=== PATIENT | male | born 1935 | race Asian ===

== ENCOUNTER 2018-11-19 14:53 | Inpatient (IN) | payer OTHER, MEDICAID ==
[~2018-11-19] VITALS: Ht 162.6 cm; Wt 52.2 kg
--- NOTE | 2018-11-19 15:06 | Emergency Room Report ---
History of Present Illness General Chief Complaint: Chest Pain Source: Patient, Family Member, EMS Present Illness HPI Patient was brought in by EMS after family called for weakness. The patient denies any chest pain. Paramedics noted that the patient was bradycardic. There is a language barrier however nurses will translate. No fevers, chills, chest pain, palpitations, nausea, vomiting, diarrhea, dysuria , abdominal pain, shortness of breath, depression, visual changes, headache. Allergies: Coded Allergies: No Known Allergies (Unverified , 11/19/18) Patient History Past Medical History: see triage record Social History: Denies: smoking Social History Narrative From home Reviewed Nursing Documentation: PMH: Agreed; PSxH: Agreed Nursing Documentation-PMH Past Medical History: No History, Except For Hx Hypertension: Yes Hx Diabetes: Yes Review of Systems All Other Systems: negative except mentioned in HPI Physical Exam Vital Signs Date Time Temp Pulse Resp B/P (MAP) Pulse Ox O2 Delivery O2 Flow Rate FiO2 11/19/18 14:46 50 16 140/55 (83) 98 Room Air Sp02 EP Interpretation: reviewed, normal General Appearance: well appearing, no apparent distress, alert, non-toxic Head: normocephalic, atraumatic Eyes: bilateral eye normal inspection, bilateral eye PERRL ENT: moist mucus membranes, other - Hearing aids Neck: supple Respiratory: lungs clear, normal breath sounds Cardiovascular #1: regular rate, rhythm Cardiovascular #2: 2+ radial (R) Gastrointestinal: normal inspection, normal bowel sounds, non tender, no mass, non-distended Musculoskeletal: back normal, normal range of motion Neurologic: alert, DTRs symmetric, sensory intact, motor weakness - Diffuse, oriented - X2 Psychiatric: depressed affect Skin: normal inspection, warm/dry Medical Decision Making Diagnostic Impression: Primary Impression: Chest pain Qualified Codes: R07.9 - Chest pain, unspecified Additional Impressions: Weakness ARF (acute renal failure) Qualified Codes: N17.9 - Acute kidney failure, unspecified Bradycardia ER Course Patient presents with weakness and bradycardia. I differential includes acute myocardial infarction, medication excess, electrolyte imbalance amongst others. Patient will be evaluated with EKG, chest x-ray and labs. The patient will receive gentle IV hydration. The patient is afebrile therefore lactate and blood cultures are not indicated. EKG with sinus bradycardia with first-degree A-V block rate of 52 no acute changes. ARF. Chest x-ray no infiltrates. HR slightly better. Patient still weak. Admit telemetry Dr. May. Laboratory Tests Test 11/19/18 15:10 11/19/18 15:40 White Blood Count 8.9 K/UL (4.8-10.8) Red Blood Count 3.20 M/UL (4.70-6.10) L Hemoglobin 10.5 G/DL (14.2-18.0) L Hematocrit 29.1 % (42.0-52.0) L Mean Corpuscular Volume 91 FL (80-99) Mean Corpuscular Hemoglobin 32.8 PG (27.0-31.0) H Mean Corpuscular Hemoglobin Concent 36.0 G/DL (32.0-36.0) Red Cell Distribution Width 11.2 % (11.6-14.8) L Platelet Count 171 K/UL (150-450) Mean Platelet Volume 5.4 FL (6.5-10.1) L Neutrophils (%) (Auto) 73.3 % (45.0-75.0) Lymphocytes (%) (Auto) 14.6 % (20.0-45.0) L Monocytes (%) (Auto) 8.6 % (1.0-10.0) Eosinophils (%) (Auto) 1.8 % (0.0-3.0) Basophils (%) (Auto) 1.7 % (0.0-2.0) Prothrombin Time 10.0 SEC (9.30-11.50) Prothrombin Time INR 0.9 (0.9-1.1) PTT 22 SEC (23-33) L Sodium Level 139 MMOL/L (136-145) Potassium Level 4.5 MMOL/L (3.5-5.1) Chloride Level 103 MMOL/L (98-107) Carbon Dioxide Level 28 MMOL/L (21-32) Anion Gap 8 mmol/L (5-15) Blood Urea Nitrogen 34 mg/dL (7-18) H Creatinine 2.5 MG/DL (0.55-1.30) H Estimate Glomerular Filtration Rate mL/min (>60) Glucose Level 240 MG/DL (74-106) H Calcium Level 9.3 MG/DL (8.5-10.1) Total Bilirubin 0.3 MG/DL (0.2-1.0) Aspartate Amino Transferase (AST) 25 U/L (15-37) Alanine Aminotransferase (ALT) 24 U/L (12-78) Alkaline Phosphatase 69 U/L (46-116) Total Creatine Kinase 63 U/L (26-308) Troponin I 0.000 ng/mL (0.000-0.056) Pro-B-Type Natriuretic Peptide 1064 pg/mL (0-125) H Total Protein 6.9 G/DL (6.4-8.2) Albumin 3.7 G/DL (3.4-5.0) Globulin 3.2 g/dL Albumin/Globulin Ratio 1.2 (1.0-2.7) Lipase 313 U/L (73-393) Urine Color Yellow Urine Appearance Clear Urine pH 6 (4.5-8.0) Urine Specific [place] 1.020 (1.005-1.035) Urine Protein 4+ (NEGATIVE) H Urine Glucose (UA) Negative (NEGATIVE) Urine Ketones Negative (NEGATIVE) Urine Blood Negative (NEGATIVE) Urine Nitrite Negative (NEGATIVE) Urine Bilirubin Negative (NEGATIVE) Urine Urobilinogen Normal MG/DL (0.0-1.0) Urine Leukocyte Esterase Negative (NEGATIVE) Urine RBC 0-2 /HPF (0 - 0) H Urine WBC 0-2 /HPF (0 - 0) Urine Squamous Epithelial Cells None /LPF (NONE/OCC) Urine Bacteria Few /HPF (NONE) EKG Diagnostic Results Rate: bradycardiac Rhythm: NSR ST Segments: no acute changes - First degree AV block Rhythm Strip Diag. Results EP Interpretation: yes Rhythm: NSR, no PVC's, no ectopy, other - Bradycardia Chest X-Ray Diagnostic Results Chest X-Ray Diagnostic Results : Chest X-Ray Ordered: Yes # of Views/Limited/Complete: 1 View Indication: Chest Pain EP Interpretation: Yes Interpretation: no consolidation, no effusion, no pneumothorax Impression: No acute disease Electronically Signed by: Electronically signed by Foreign Guajardo MD Last Vital Signs Date Time Temp Pulse Resp B/P (MAP) Pulse Ox O2 Delivery O2 Flow Rate FiO2 11/20/18 00:00 98.1 65 18 127/57 (80) 98 11/19/18 21:00 Room Air Status: improved Disposition: ADMITTED INPATIENT Condition: Serious Foreign Guajardo MD Nov 19, 2018 15:06
[2018-11-19] MEDS ORDERED: Sodium Chloride 550 ML IV SCH (15:15)
[2018-11-19 15:19] VITALS: BP 151/43
--- NOTE | 2018-11-19 15:22 | NUR ---
ED Nurse Note: Pt BIBA from home due to chest pain medial area 1 hr prior to arrival, pt took 0.4mg Nitroglycerin and was given 162mg of ASA by paramedics. No pain upon arrival. HR in the range 45-55 at this time. AOx4, Will cont to monitor.
[2018-11-19 15:28] LABS: BASOPHILS % (AUTO) 1.7 % (0.0-2.0); EOSINOPHILS % (AUTO) 1.8 % (0.0-3.0); HEMATOCRIT 29.1 % (42.0-52.0); HEMOGLOBIN 10.5 G/DL (14.2-18.0); LYMPHOCYTES % (AUTO) 14.6 % (20.0-45.0); MEAN CORPUSCULAR VOLUME 91 FL (80-99); MONOCYTES % (AUTO) 8.6 % (1.0-10.0); NEUTROPHILS % (AUTO) 73.3 % (45.0-75.0); PLATELET COUNT 171 K/UL (150-450); RED CELL DISTRIBUTION WIDTH 11.2 % (11.6-14.8); WHITE BLOOD COUNT 8.9 K/UL (4.8-10.8)
--- NOTE | 2018-11-19 15:36 | NUR ---
ED Nurse Note: Blood drawn and sent to lab.
[2018-11-19 15:38] LABS: ANION GAP 8 mmol/L (5-15); BLOOD UREA NITROGEN 34 mg/dL (7-18); CALCIUM 9.3 MG/DL (8.5-10.1); CARBON DIOXIDE 28 MMOL/L (21-32); CHLORIDE 103 MMOL/L (98-107); CREATININE 2.5 MG/DL (0.55-1.30); POTASSIUM 4.5 MMOL/L (3.5-5.1); SODIUM 139 MMOL/L (136-145)
[2018-11-19 15:41] LABS: INR 0.9 (0.9-1.1)
[2018-11-19 15:53] LABS: ALANINE AMINOTRANSFERASE 24 U/L (12-78); ALBUMIN 3.7 G/DL (3.4-5.0); ALBUMIN/GLOBULIN RATIO 1.2 (1.0-2.7); ALKALINE PHOSPHATASE 69 U/L (46-116); ASPARTATE AMINO TRANSFERASE 25 U/L (15-37); BILIRUBIN,TOTAL 0.3 MG/DL (0.2-1.0); CREATINE KINASE 63 U/L (26-308)
[2018-11-19 15:55] LABS: APPEARANCE,URINE CLEAR; BILIRUBIN, URINE NEGATIVE (NEGATIVE); GLUCOSE, URINE (UA) NEGATIVE (NEGATIVE); KETONES,URINE NEGATIVE (NEGATIVE); LEUKOCYTE ESTERASE ,URINE NEGATIVE (NEGATIVE); NITRITE,URINE NEGATIVE (NEGATIVE); PH,URINE 6 (4.5-8.0); PROTEIN,URINE 4+ (NEGATIVE); UROBILINOGEN,URINE NORMAL MG/DL (0.0-1.0)
[2018-11-19 15:57] LABS: COLOR,URINE YELLOW
--- NOTE | 2018-11-19 15:58 | Diagnostic Imaging Report ---
Indication: Dyspnea Comparison: None A single view chest radiograph was obtained. Findings: Cardiomediastinal appearance is within normal limits for age. The lungs are clear. Pulmonary vascularity is appropriate. The diaphragmatic contour is smooth and costophrenic angles are sharp. No pleural effusions are identified. The bones are unremarkable. Impression: No acute findings
[2018-11-19 17:19] VITALS: BP 152/49
--- NOTE | 2018-11-19 17:25 | NUR ---
ED Nurse Note: "Im going to find a nurse for the room and call you back" from [facility].
[2018-11-19] MEDS ORDERED: dilTIAZem HCl 25mg/5ml Inj IV PRN (17:45)
[2018-11-19] MEDS ORDERED: Morphine Sulfate 2mg/ml Inj(IV/IM USE ONLY) IVP PRN (17:45)
[2018-11-19] MEDS ORDERED: Miralax 17gm pkt ORAL PRN (17:49)
[2018-11-19] MEDS ORDERED: Nitroglycerin Subl 0.4mg tab SL PRN (17:49)
[2018-11-19] MEDS ORDERED: Albuterol/Ipratropium 3ml neb HHN PRN (17:50)
[2018-11-19] MEDS ORDERED: Enalaprilat 2.5mg/2ml Inj IV PRN (17:50)
[2018-11-19 18:01] VITALS: BP 148/57
--- NOTE | 2018-11-19 18:18 | NUR ---
ED Nurse Note: Report given to LASHANDA Burks at ext [phone]. Pt to be transfered to room 205-2 per protocol with all belongings.
[2018-11-19 18:45] VITALS: BP 167/70
--- NOTE | 2018-11-19 19:15 | NUR ---
NURSE NOTES: Received pt. and report from LASHANDA Burks. Observe pt resting in bed and watching television. supervisor filtration is in placed, IV site intact, asymptomatic and patent. Bed is in the lowest position and locked. Call light within reach. No signs and symptoms of acute distress noted at this time. Will continue plan of care.
--- NOTE | 2018-11-19 19:25 | NUR ---
HAND-OFF: Report given to FUNMI PYLE.
[2018-11-19 20:00] VITALS: BP 124/96
--- NOTE | 2018-11-19 20:08 | Cardiology Progress Note ---
Assessment/Plan Assessment/Plan sinus solis excellent bp meds unknown need more infor form family and pt chk tfts and ekg and echo in am trop in am [id number] will follow thank you Objective Last 24 Hour Vital Signs Date Time Temp Pulse Resp B/P (MAP) Pulse Ox O2 Delivery O2 Flow Rate FiO2 11/19/18 18:45 98.0 67 18 167/70 (102) 96 11/19/18 18:38 Room Air 11/19/18 18:18 57 20 148/57 98 Room Air 11/19/18 18:01 57 20 148/57 98 Room Air 11/19/18 17:19 53 18 152/49 98 Room Air 11/19/18 15:20 54 20 Room Air 11/19/18 15:19 54 20 151/43 99 Room Air 11/19/18 14:46 50 16 140/55 (83) 98 Room Air Laboratory Tests Test 11/19/18 15:10 11/19/18 15:40 White Blood Count 8.9 K/UL (4.8-10.8) Red Blood Count 3.20 M/UL (4.70-6.10) L Hemoglobin 10.5 G/DL (14.2-18.0) L Hematocrit 29.1 % (42.0-52.0) L Mean Corpuscular Volume 91 FL (80-99) Mean Corpuscular Hemoglobin 32.8 PG (27.0-31.0) H Mean Corpuscular Hemoglobin Concent 36.0 G/DL (32.0-36.0) Red Cell Distribution Width 11.2 % (11.6-14.8) L Platelet Count 171 K/UL (150-450) Mean Platelet Volume 5.4 FL (6.5-10.1) L Neutrophils (%) (Auto) 73.3 % (45.0-75.0) Lymphocytes (%) (Auto) 14.6 % (20.0-45.0) L Monocytes (%) (Auto) 8.6 % (1.0-10.0) Eosinophils (%) (Auto) 1.8 % (0.0-3.0) Basophils (%) (Auto) 1.7 % (0.0-2.0) Prothrombin Time 10.0 SEC (9.30-11.50) Prothromb Time International Ratio 0.9 (0.9-1.1) Activated Partial Thromboplast Time 22 SEC (23-33) L Sodium Level 139 MMOL/L (136-145) Potassium Level 4.5 MMOL/L (3.5-5.1) Chloride Level 103 MMOL/L (98-107) Carbon Dioxide Level 28 MMOL/L (21-32) Anion Gap 8 mmol/L (5-15) Blood Urea Nitrogen 34 mg/dL (7-18) H Creatinine 2.5 MG/DL (0.55-1.30) H Estimat Glomerular Filtration Rate mL/min (>60) Glucose Level 240 MG/DL (74-106) H Calcium Level 9.3 MG/DL (8.5-10.1) Total Bilirubin 0.3 MG/DL (0.2-1.0) Aspartate Amino Transf (AST/SGOT) 25 U/L (15-37) Alanine Aminotransferase (ALT/SGPT) 24 U/L (12-78) Alkaline Phosphatase 69 U/L (46-116) Total Creatine Kinase 63 U/L (26-308) Troponin I 0.000 ng/mL (0.000-0.056) Pro-B-Type Natriuretic Peptide 1064 pg/mL (0-125) H Total Protein 6.9 G/DL (6.4-8.2) Albumin 3.7 G/DL (3.4-5.0) Globulin 3.2 g/dL Albumin/Globulin Ratio 1.2 (1.0-2.7) Lipase 313 U/L (73-393) Urine Color Yellow Urine Appearance Clear Urine pH 6 (4.5-8.0) Urine Specific [place] 1.020 (1.005-1.035) Urine Protein 4+ (NEGATIVE) H Urine Glucose (UA) Negative (NEGATIVE) Urine Ketones Negative (NEGATIVE) Urine Blood Negative (NEGATIVE) Urine Nitrite Negative (NEGATIVE) Urine Bilirubin Negative (NEGATIVE) Urine Urobilinogen Normal MG/DL (0.0-1.0) Urine Leukocyte Esterase Negative (NEGATIVE) Urine RBC 0-2 /HPF (0 - 0) H Urine WBC 0-2 /HPF (0 - 0) Urine Squamous Epithelial Cells None /LPF (NONE/OCC) Urine Bacteria Few /HPF (NONE) David Jain MD Nov 19, 2018 20:08
[2018-11-19 21:11] LABS: CREATINE KINASE 63 U/L (26-308)
[2018-11-19] MEDS: Heparin 5000 units/ml inj SUBQ SCH (21:30)
[2018-11-19] MEDS: NovoLOG Insulin Flexpen SUBQ SCH (21:48)
[2018-11-20] VITALS: BP 127/57
[2018-11-20 04:00] VITALS: BP 158/56
[2018-11-20 06:20] LABS: BASOPHILS % (AUTO) 0.5 % (0.0-2.0); EOSINOPHILS % (AUTO) 1.4 % (0.0-3.0); HEMATOCRIT 29.2 % (42.0-52.0); HEMOGLOBIN 10.1 G/DL (14.2-18.0); LYMPHOCYTES % (AUTO) 23.7 % (20.0-45.0); MEAN CORPUSCULAR VOLUME 95 FL (80-99); MONOCYTES % (AUTO) 7.7 % (1.0-10.0); NEUTROPHILS % (AUTO) 66.7 % (45.0-75.0); PLATELET COUNT 168 K/UL (150-450); RED BLOOD COUNT 3.07 M/UL (4.70-6.10); RED CELL DISTRIBUTION WIDTH 11.8 % (11.6-14.8); WHITE BLOOD COUNT 5.7 K/UL (4.8-10.8)
[2018-11-20] MEDS: NovoLOG Insulin Flexpen SUBQ SCH ×4 (06:30→21:28)
[2018-11-20 07:02] LABS: ALANINE AMINOTRANSFERASE 21 U/L (12-78); ALBUMIN 3.4 G/DL (3.4-5.0); ALKALINE PHOSPHATASE 69 U/L (46-116); ANION GAP 8 mmol/L (5-15); ASPARTATE AMINO TRANSFERASE 27 U/L (15-37); BILIRUBIN,TOTAL 0.4 MG/DL (0.2-1.0); BLOOD UREA NITROGEN 27 mg/dL (7-18); CARBON DIOXIDE 26 MMOL/L (21-32); CHLORIDE 107 MMOL/L (98-107); CHOLESTEROL 131 MG/DL (< 200); CREATININE 2.1 MG/DL (0.55-1.30); FERRITIN 167 NG/ML (8-388); HDL CHOLESTEROL 46 MG/DL (40-60); POTASSIUM 4.5 MMOL/L (3.5-5.1); SODIUM 141 MMOL/L (136-145); TRIGLYCERIDES 57 MG/DL (30-150)
[2018-11-20 07:03] LABS: % IRON SATURATION 27 % (15-50); IRON 59 ug/dL (50-175); TOTAL IRON BINDING CAPACITY 222 ug/dL (250-450)
--- NOTE | 2018-11-20 07:35 | NUR ---
NURSE NOTES: pt awake alert, no distress. no sob. no c/o pain at this time. call light within reach. bed in lowest position, locked.
[2018-11-20 07:37] VITALS: BP 130/56
[2018-11-20 07:48] LABS: GAMMA GLUTAMYL TRANSPEPTIDASE 37 U/L (5-85); PHOSPHORUS 4.7 MG/DL (2.5-4.9)
--- NOTE | 2018-11-20 08:02 | NUR ---
HAND-OFF: Report given to LASHANDA Burks.
[2018-11-20] MEDS: Aspirin Baby 81mg ORAL SCH (08:17)
[2018-11-20] MEDS: Heparin 5000 units/ml inj SUBQ SCH ×2 (08:19→21:29)
--- NOTE | 2018-11-20 10:06 | Cardiology Progress Note ---
Assessment/Plan Assessment/Plan sinus solis recurrent bout of nausea and vomitting htn hld renal insuf anemia list of med are being requested from pharmacy rn who is familiar with the pharmacy was going to call them d/w dtr d/w rn ahd similar episode fo nausea and vomitting on several occasion seen by pmd nothing seem to have been done monitor on tele ekg echo tsh need tomake suere meds are nto contributing to the solis and or nausea and vomiting Subjective Cardiovascular: Denies: chest pain, lightheadedness, palpitations Respiratory: Denies: shortness of breath Gastrointestinal/Abdominal: Denies: abdominal pain, diarrhea, nausea, vomiting Genitourinary: Denies: burning Objective Last 24 Hour Vital Signs Date Time Temp Pulse Resp B/P (MAP) Pulse Ox O2 Delivery O2 Flow Rate FiO2 11/20/18 07:53 63 11/20/18 07:37 98.4 68 18 130/56 (80) 96 11/20/18 04:00 54 11/20/18 04:00 98.4 66 18 158/56 (90) 96 11/20/18 00:00 98.1 65 18 127/57 (80) 98 11/20/18 00:00 52 11/19/18 21:00 Room Air 11/19/18 20:00 79 11/19/18 20:00 98.2 69 18 124/96 (105) 97 11/19/18 18:45 98.0 67 18 167/70 (102) 96 11/19/18 18:38 Room Air 11/19/18 18:18 57 20 148/57 98 Room Air 11/19/18 18:01 57 20 148/57 98 Room Air 11/19/18 17:19 53 18 152/49 98 Room Air 11/19/18 15:20 54 20 Room Air 11/19/18 15:19 54 20 151/43 99 Room Air 11/19/18 14:46 50 16 140/55 (83) 98 Room Air General Appearance: no apparent distress, alert Neck: supple Cardiovascular: normal rate, regular rhythm Respiratory/Chest: lungs clear Abdomen: normal bowel sounds, non tender, soft Extremities: no swelling Intake and Output 11/19/18 11/20/18 19:00 07:00 Intake Total 550 ml Balance 550 ml IV Total 550 ml # Voids 1 Laboratory Tests Test 11/19/18 15:10 11/19/18 15:40 11/19/18 20:20 11/20/18 04:45 White Blood Count 8.9 K/UL (4.8-10.8) 5.7 K/UL (4.8-10.8) Red Blood Count 3.20 M/UL (4.70-6.10) L 3.07 M/UL (4.70-6.10) L Hemoglobin 10.5 G/DL (14.2-18.0) L 10.1 G/DL (14.2-18.0) L Hematocrit 29.1 % (42.0-52.0) L 29.2 % (42.0-52.0) L Mean Corpuscular Volume 91 FL (80-99) 95 FL (80-99) Mean Corpuscular Hemoglobin 32.8 PG (27.0-31.0) H 32.8 PG (27.0-31.0) H Mean Corpuscular Hemoglobin Concent 36.0 G/DL (32.0-36.0) 34.5 G/DL (32.0-36.0) Red Cell Distribution Width 11.2 % (11.6-14.8) L 11.8 % (11.6-14.8) Platelet Count 171 K/UL (150-450) 168 K/UL (150-450) Mean Platelet Volume 5.4 FL (6.5-10.1) L 6.1 FL (6.5-10.1) L Neutrophils (%) (Auto) 73.3 % (45.0-75.0) 66.7 % (45.0-75.0) Lymphocytes (%) (Auto) 14.6 % (20.0-45.0) L 23.7 % (20.0-45.0) Monocytes (%) (Auto) 8.6 % (1.0-10.0) 7.7 % (1.0-10.0) Eosinophils (%) (Auto) 1.8 % (0.0-3.0) 1.4 % (0.0-3.0) Basophils (%) (Auto) 1.7 % (0.0-2.0) 0.5 % (0.0-2.0) Prothrombin Time 10.0 SEC (9.30-11.50) 10.2 SEC (9.30-11.50) Prothromb Time International Ratio 0.9 (0.9-1.1) 1.0 (0.9-1.1) Activated Partial Thromboplast Time 22 SEC (23-33) L 28 SEC (23-33) Sodium Level 139 MMOL/L (136-145) 141 MMOL/L (136-145) Potassium Level 4.5 MMOL/L (3.5-5.1) 4.5 MMOL/L (3.5-5.1) Chloride Level 103 MMOL/L (98-107) 107 MMOL/L (98-107) Carbon Dioxide Level 28 MMOL/L (21-32) 26 MMOL/L (21-32) Anion Gap 8 mmol/L (5-15) 8 mmol/L (5-15) Blood Urea Nitrogen 34 mg/dL (7-18) H 27 mg/dL (7-18) H Creatinine 2.5 MG/DL (0.55-1.30) H 2.1 MG/DL (0.55-1.30) H Estimat Glomerular Filtration Rate mL/min (>60) mL/min (>60) Glucose Level 240 MG/DL (74-106) H 90 MG/DL (74-106) # Calcium Level 9.3 MG/DL (8.5-10.1) 9.0 MG/DL (8.5-10.1) Total Bilirubin 0.3 MG/DL (0.2-1.0) 0.4 MG/DL (0.2-1.0) Aspartate Amino Transf (AST/SGOT) 25 U/L (15-37) 27 U/L (15-37) Alanine Aminotransferase (ALT/SGPT) 24 U/L (12-78) 21 U/L (12-78) Alkaline Phosphatase 69 U/L (46-116) 69 U/L (46-116) Total Creatine Kinase 63 U/L (26-308) 63 U/L (26-308) Troponin I 0.000 ng/mL (0.000-0.056) 0.013 ng/mL (0.000-0.056) Pro-B-Type Natriuretic Peptide 1064 pg/mL (0-125) H 682 pg/mL (0-125) H Total Protein 6.9 G/DL (6.4-8.2) 6.7 G/DL (6.4-8.2) Albumin 3.7 G/DL (3.4-5.0) 3.4 G/DL (3.4-5.0) Globulin 3.2 g/dL 3.3 g/dL Albumin/Globulin Ratio 1.2 (1.0-2.7) 1.0 (1.0-2.7) Lipase 313 U/L (73-393) Urine Color Yellow Urine Appearance Clear Urine pH 6 (4.5-8.0) Urine Specific [place] 1.020 (1.005-1.035) Urine Protein 4+ (NEGATIVE) H Urine Glucose (UA) Negative (NEGATIVE) Urine Ketones Negative (NEGATIVE) Urine Blood Negative (NEGATIVE) Urine Nitrite Negative (NEGATIVE) Urine Bilirubin Negative (NEGATIVE) Urine Urobilinogen Normal MG/DL (0.0-1.0) Urine Leukocyte Esterase Negative (NEGATIVE) Urine RBC 0-2 /HPF (0 - 0) H Urine WBC 0-2 /HPF (0 - 0) Urine Squamous Epithelial Cells None /LPF (NONE/OCC) Urine Bacteria Few /HPF (NONE) Urine Eosinophils Negative (NONE SEEN) Urine Osmolality 475 mOsm/kg (429-449) H Urine Random Creatinine Pending Urine Random Microalbumin Pending Urine Random Sodium 67 mmol/L (20-110) Urine Microalbumin/Creatinine Ratio Pending Uric Acid 6.1 MG/DL (2.6-7.2) 6.3 MG/DL (2.6-7.2) Hemoglobin A1c 6.1 % (4.3-6.0) H Phosphorus Level 4.7 MG/DL (2.5-4.9) Magnesium Level 1.9 MG/DL (1.8-2.4) Iron Level 59 ug/dL (50-175) Total Iron Binding Capacity 222 ug/dL (250-450) L Percent Iron Saturation 27 % (15-50) Unsaturated Iron Binding 163 ug/dL (112-346) Ferritin 167 NG/ML (8-388) Gamma Glutamyl Transpeptidase 37 U/L (5-85) C-Reactive Protein, Quantitative < 0.4 mg/dL (0.00-0.90) Triglycerides Level 57 MG/DL (30-150) Cholesterol Level 131 MG/DL (< 200) LDL Cholesterol 74 mg/dL (<100) HDL Cholesterol 46 MG/DL (40-60) Cholesterol/HDL Ratio 2.8 (3.3-4.4) L Vitamin B12 Level 771 PG/ML (193-986) Folate 81.9 NG/ML (8.6-58.9) H Thyroid Stimulating Hormone (TSH) 1.829 uiU/mL (0.358-3.740) David Jain MD Nov 20, 2018 10:06
[2018-11-20] MEDS ORDERED: CREON DR 24,001 EACH PO (10:29)
[2018-11-20] MEDS ORDERED: ZOFRAN4 M3 ORAL (10:29)
[2018-11-20] MEDS ORDERED: AMLODIPINE BESYL5 MG ORAL (10:29)
[2018-11-20] MEDS ORDERED: TRADJENTA5 MG PO (10:29)
[2018-11-20] MEDS ORDERED: ANTI-DIARRHEAL2 MG PO (10:29)
[2018-11-20] MEDS ORDERED: DONEPEZIL HCL5 M2 ORAL (10:29)
[2018-11-20] MEDS ORDERED: BENAZEPRIL HCL40 MG ORAL (10:29)
--- NOTE | 2018-11-20 11:51 | Diagnostic Imaging Report ---
Indication: Acute renal failure Technique: Grayscale and duplex images of the kidneys, retroperitoneum, and bladder were obtained. Comparison: none Findings: Right kidney measures 8.4 cm in length. Left kidney measures 11.5 cm in length. Both kidneys demonstrate increased echogenicity. No hydronephrosis. There is mild fullness of the left renal collecting system. There is bilateral renal cysts noted.. Normal inferior vena cava. Bladder is somewhat distended. Patient had no urge to void the prostate is not demonstrated. Impression: Somewhat atrophic right kidney Increased renal echogenicity bilaterally, consistent with medical renal disease Mild fullness of the left renal collecting system, of uncertain significance incidental finding bilateral renal cysts.
[2018-11-20 12:00] VITALS: BP 128/60
--- NOTE | 2018-11-20 12:48 | Consultation ---
History of Present Illness General Date patient seen: Nov 20, 2018 Chief Complaint: Chest Pain Present Illness HPI 83 year old male with hx of Dementia, HtN, brought in by EMS after family called for weakness. The patient denies any chest pain. Paramedics noted that the patient was bradycardic.Inital evaluation revealed that pt has renal failure. No fevers, chills, chest pain, palpitations, nausea, vomiting, diarrhea, dysuria , abdominal pain, shortness of breath, depression, visual changes, headache. Allergies: Coded Allergies: No Known Allergies (Unverified , 11/19/18) Medication History Scheduled Amlodipine Besylate* (Amlodipine Besylate*), 5 MG ORAL DAILY, (Reported) Benazepril Hcl* (Benazepril Hcl*), 40 MG ORAL DAILY, (Reported) Donepezil Hcl* (Donepezil Hcl*), 5 MG ORAL DAILY, (Reported) Linagliptin (Tradjenta), 5 MG PO DAILY, (Reported) Lipase/Protease/Amylase (Creon Dr 24,000 Units Capsule), 1 EACH PO TID, ( Reported) Scheduled PRN Loperamide Hcl (Anti-Diarrheal), 2 MG PO Q6HR PRN for Diarrhea, (Reported) Ondansetron* (Zofran*), 4 MG ORAL Q6H PRN for Nausea & Vomiting, (Reported) Patient History Healthcare decision maker Resuscitation status Full Code Advanced Directive on File Past Medical/Surgical History Past Medical/Surgical History: (1) Alzheimer's dementia (2) Hypertension Review of Systems All Other Systems: negative except mentioned in HPI Physical Exam General Appearance: WD/WN, no apparent distress Lines, tubes and drains: peripheral HEENT: normocephalic, atraumatic, anicteric Neck: non-tender, normal alignment Respiratory/Chest: chest wall non-tender, lungs clear Breasts: no masses Cardiovascular/Chest: normal peripheral pulses, normal rate Genitourinary/Rectal: normal genital exam, heme negative stool Extremities: normal range of motion, non-tender, normal inspection 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 grossly normal Last 24 Hour Vital Signs Date Time Temp Pulse Resp B/P (MAP) Pulse Ox O2 Delivery O2 Flow Rate FiO2 11/20/18 09:00 Room Air 11/20/18 07:53 63 11/20/18 07:37 98.4 68 18 130/56 (80) 96 11/20/18 04:00 54 11/20/18 04:00 98.4 66 18 158/56 (90) 96 11/20/18 00:00 98.1 65 18 127/57 (80) 98 11/20/18 00:00 52 11/19/18 21:00 Room Air 11/19/18 20:00 79 11/19/18 20:00 98.2 69 18 124/96 (105) 97 11/19/18 18:45 98.0 67 18 167/70 (102) 96 11/19/18 18:38 Room Air 11/19/18 18:18 57 20 148/57 98 Room Air 11/19/18 18:01 57 20 148/57 98 Room Air 11/19/18 17:19 53 18 152/49 98 Room Air 11/19/18 15:20 54 20 Room Air 11/19/18 15:19 54 20 151/43 99 Room Air 11/19/18 14:46 50 16 140/55 (83) 98 Room Air Intake and Output 11/19/18 11/20/18 19:00 07:00 Intake Total 550 ml Balance 550 ml IV Total 550 ml # Voids 1 Laboratory Tests Test 11/19/18 15:10 11/19/18 15:40 11/19/18 20:20 11/20/18 04:45 White Blood Count 8.9 K/UL (4.8-10.8) 5.7 K/UL (4.8-10.8) Red Blood Count 3.20 M/UL (4.70-6.10) L 3.07 M/UL (4.70-6.10) L Hemoglobin 10.5 G/DL (14.2-18.0) L 10.1 G/DL (14.2-18.0) L Hematocrit 29.1 % (42.0-52.0) L 29.2 % (42.0-52.0) L Mean Corpuscular Volume 91 FL (80-99) 95 FL (80-99) Mean Corpuscular Hemoglobin 32.8 PG (27.0-31.0) H 32.8 PG (27.0-31.0) H Mean Corpuscular Hemoglobin Concent 36.0 G/DL (32.0-36.0) 34.5 G/DL (32.0-36.0) Red Cell Distribution Width 11.2 % (11.6-14.8) L 11.8 % (11.6-14.8) Platelet Count 171 K/UL (150-450) 168 K/UL (150-450) Mean Platelet Volume 5.4 FL (6.5-10.1) L 6.1 FL (6.5-10.1) L Neutrophils (%) (Auto) 73.3 % (45.0-75.0) 66.7 % (45.0-75.0) Lymphocytes (%) (Auto) 14.6 % (20.0-45.0) L 23.7 % (20.0-45.0) Monocytes (%) (Auto) 8.6 % (1.0-10.0) 7.7 % (1.0-10.0) Eosinophils (%) (Auto) 1.8 % (0.0-3.0) 1.4 % (0.0-3.0) Basophils (%) (Auto) 1.7 % (0.0-2.0) 0.5 % (0.0-2.0) Prothrombin Time 10.0 SEC (9.30-11.50) 10.2 SEC (9.30-11.50) Prothromb Time International Ratio 0.9 (0.9-1.1) 1.0 (0.9-1.1) Activated Partial Thromboplast Time 22 SEC (23-33) L 28 SEC (23-33) Sodium Level 139 MMOL/L (136-145) 141 MMOL/L (136-145) Potassium Level 4.5 MMOL/L (3.5-5.1) 4.5 MMOL/L (3.5-5.1) Chloride Level 103 MMOL/L (98-107) 107 MMOL/L (98-107) Carbon Dioxide Level 28 MMOL/L (21-32) 26 MMOL/L (21-32) Anion Gap 8 mmol/L (5-15) 8 mmol/L (5-15) Blood Urea Nitrogen 34 mg/dL (7-18) H 27 mg/dL (7-18) H Creatinine 2.5 MG/DL (0.55-1.30) H 2.1 MG/DL (0.55-1.30) H Estimat Glomerular Filtration Rate mL/min (>60) mL/min (>60) Glucose Level 240 MG/DL (74-106) H 90 MG/DL (74-106) # Calcium Level 9.3 MG/DL (8.5-10.1) 9.0 MG/DL (8.5-10.1) Total Bilirubin 0.3 MG/DL (0.2-1.0) 0.4 MG/DL (0.2-1.0) Aspartate Amino Transf (AST/SGOT) 25 U/L (15-37) 27 U/L (15-37) Alanine Aminotransferase (ALT/SGPT) 24 U/L (12-78) 21 U/L (12-78) Alkaline Phosphatase 69 U/L (46-116) 69 U/L (46-116) Total Creatine Kinase 63 U/L (26-308) 63 U/L (26-308) Troponin I 0.000 ng/mL (0.000-0.056) 0.013 ng/mL (0.000-0.056) Pro-B-Type Natriuretic Peptide 1064 pg/mL (0-125) H 682 pg/mL (0-125) H Total Protein 6.9 G/DL (6.4-8.2) 6.7 G/DL (6.4-8.2) Albumin 3.7 G/DL (3.4-5.0) 3.4 G/DL (3.4-5.0) Globulin 3.2 g/dL 3.3 g/dL Albumin/Globulin Ratio 1.2 (1.0-2.7) 1.0 (1.0-2.7) Lipase 313 U/L (73-393) Urine Color Yellow Urine Appearance Clear Urine pH 6 (4.5-8.0) Urine Specific [place] 1.020 (1.005-1.035) Urine Protein 4+ (NEGATIVE) H Urine Glucose (UA) Negative (NEGATIVE) Urine Ketones Negative (NEGATIVE) Urine Blood Negative (NEGATIVE) Urine Nitrite Negative (NEGATIVE) Urine Bilirubin Negative (NEGATIVE) Urine Urobilinogen Normal MG/DL (0.0-1.0) Urine Leukocyte Esterase Negative (NEGATIVE) Urine RBC 0-2 /HPF (0 - 0) H Urine WBC 0-2 /HPF (0 - 0) Urine Squamous Epithelial Cells None /LPF (NONE/OCC) Urine Bacteria Few /HPF (NONE) Urine Eosinophils Negative (NONE SEEN) Urine Osmolality 475 mOsm/kg (429-449) H Urine Random Creatinine Pending Urine Random Microalbumin Pending Urine Random Sodium 67 mmol/L (20-110) Urine Microalbumin/Creatinine Ratio Pending Uric Acid 6.1 MG/DL (2.6-7.2) 6.3 MG/DL (2.6-7.2) Hemoglobin A1c 6.1 % (4.3-6.0) H Phosphorus Level 4.7 MG/DL (2.5-4.9) Magnesium Level 1.9 MG/DL (1.8-2.4) Iron Level 59 ug/dL (50-175) Total Iron Binding Capacity 222 ug/dL (250-450) L Percent Iron Saturation 27 % (15-50) Unsaturated Iron Binding 163 ug/dL (112-346) Ferritin 167 NG/ML (8-388) Gamma Glutamyl Transpeptidase 37 U/L (5-85) C-Reactive Protein, Quantitative < 0.4 mg/dL (0.00-0.90) Triglycerides Level 57 MG/DL (30-150) Cholesterol Level 131 MG/DL (< 200) LDL Cholesterol 74 mg/dL (<100) HDL Cholesterol 46 MG/DL (40-60) Cholesterol/HDL Ratio 2.8 (3.3-4.4) L Vitamin B12 Level 771 PG/ML (193-986) Folate 81.9 NG/ML (8.6-58.9) H Thyroid Stimulating Hormone (TSH) 1.829 uiU/mL (0.358-3.740) Height (Feet): 5 Height (Inches): 4.00 Weight (Pounds): 140 Medications Current Medications Medications (Trade) Dose Ordered Sig/Joelle Route PRN Reason Start Time Stop Time Status Last Admin Dose Admin Acetaminophen (Tylenol) 650 mg Q4H PRN ORAL FEVER 11/19/18 17:49 12/19/18 17:48 Albuterol/ Ipratropium (Albuterol/ Ipratropium) 3 ml Q4H PRN HHN Shortness of Breath 11/19/18 17:50 11/24/18 17:49 Aspirin (ASA) 162 mg DAILY ORAL 11/20/18 09:00 12/20/18 08:59 11/20/18 08:17 Dextrose (Dextrose 50%) 25 ml Q30M PRN IV Hypoglycemia 11/19/18 18:56 12/19/18 18:55 Dextrose (Dextrose 50%) 50 ml Q30M PRN IV Hypoglycemia 11/19/18 19:00 12/19/18 18:59 Enalaprilat (Vasotec) 2.5 mg Q6H PRN IV sbp more than 160 11/19/18 17:50 12/19/18 17:49 Heparin Sodium (Porcine) (Heparin 5000 units/ml) 5,000 units EVERY 12 HOURS SUBQ 11/19/18 21:00 12/19/18 20:59 11/20/18 08:19 Insulin Aspart (NovoLOG) BEFORE MEALS AND HS SUBQ 11/19/18 21:00 12/19/18 20:59 11/20/18 11:18 Morphine Sulfate (Morphine Sulfate) 2 mg Q4H PRN IVP severe Pain (Pain Scale 7-10) 11/19/18 17:45 11/26/18 17:44 Nitroglycerin (Ntg) 0.4 mg Q5MIN X 3 DOSES PRN SL Prn Chest Pain 11/19/18 17:49 12/19/18 17:48 Ondansetron HCl (Zofran) 4 mg Q6H PRN IVP Nausea & Vomiting 11/19/18 17:50 12/19/18 17:49 Polyethylene Glycol (Miralax) 17 gm DAILYPRN PRN ORAL Constipation 11/19/18 17:49 12/19/18 17:48 Temazepam (Restoril) 15 mg HSPRN PRN ORAL Insomnia 11/19/18 21:00 11/26/18 20:59 Assessment/Plan Problem List: (1) Bradycardia ICD Codes: R00.1 - Bradycardia, unspecified SNOMED: 25526995 (2) Intractable nausea and vomiting ICD Codes: R11.2 - Nausea with vomiting, unspecified SNOMED: 806876407 (3) ARF (acute renal failure) ICD Codes: N17.9 - Acute kidney failure, unspecified SNOMED: 03875577 Qualifiers: Qualified Codes: N17.9 - Acute kidney failure, unspecified (4) Hypertension ICD Codes: I10 - Essential (primary) hypertension SNOMED: 05864046 (5) Alzheimer's dementia ICD Codes: G30.9 - Alzheimer's disease, unspecified; F02.80 - Dementia in other diseases classified elsewhere without behavioral disturbance SNOMED: 14923407 Assessment/Plan: NPO iv fluids GI evaluation cardio to see review meds to see which one might be causing the bradycardia symptomatic treatment Kevin Nazario MD Nov 20, 2018 12:48
--- NOTE | 2018-11-20 12:58 | GI Initial Consult Note ---
History of Present Illness General Date patient seen: Nov 20, 2018 Time patient seen: 12:50 Reason for Hospitalization: Chest Pain Referring physician: NATHALY SESAY Reason for Consultation: ANEMIA Present Illness HPI Patient was brought in by EMS after family called for weakness. The patient denies any chest pain. Paramedics noted that the patient was bradycardic. There is a language barrier however nurses will translate. No fevers, chills, chest pain, palpitations, nausea, vomiting, diarrhea, dysuria , abdominal pain, shortness of breath, depression, visual changes, headache. GI consulted for anemia. Patient seen, awake alert and oriented x4 hard of hearing. Denies any nausea vomiting or diarrhea at this time. Denies any abdominal pain. Patient stated he had endoscopy and colonoscopy approximately 3 to 4 years ago. The patient tolerated his lunch. Labs reviewed no leukocytosis, hemoglobin 10.1, iron within normal limits, no transaminitis. Home Meds Reported Medications Loperamide Hcl (ANTI-DIARRHEAL) 2 Mg Capsule, 2 MG PO Q6HR PRN for Diarrhea, CAP 11/20/18 Ondansetron* (ZOFRAN*) 4 Mg Tablet, 4 MG ORAL Q6H PRN for Nausea & Vomiting, TAB 11/20/18 Lipase/Protease/Amylase (CREON DR 24,000 UNITS CAPSULE) 1 Each Capsule.dr, 1 EACH PO TID, CAP 11/20/18 Linagliptin (TRADJENTA) 5 Mg Tablet, 5 MG PO DAILY, TAB 11/20/18 Donepezil Hcl* (DONEPEZIL HCL*) 5 Mg Tab.rapdis, 5 MG ORAL DAILY, TAB 11/20/18 Benazepril Hcl* (BENAZEPRIL HCL*) 40 Mg Tablet, 40 MG ORAL DAILY, TAB 11/20/18 Amlodipine Besylate* (AMLODIPINE BESYLATE*) 5 Mg Tablet, 5 MG ORAL DAILY, TAB 11/20/18 Med list reviewed/reconciled: Yes Allergies: Coded Allergies: No Known Allergies (Unverified , 11/19/18) Patient History History Provided By: Patient, Medical Record PMH Narrative Past Medical History: see triage record Social History: Denies: smoking Social History Narrative From home Reviewed Nursing Documentation: PMH: Agreed; PSxH: Agreed Nursing Documentation-PMH Past Medical History: No History, Except For Hx Hypertension: Yes Hx Diabetes: Yes Social History: Denies: smoking, alcohol use, drug use, other Review of Systems All Other Systems: limited Physical Exam Vital Signs Date Time Temp Pulse Resp B/P (MAP) Pulse Ox O2 Delivery O2 Flow Rate FiO2 11/19/18 14:46 50 16 140/55 (83) 98 Room Air 11/19/18 18:45 98.0 Sp02 EP Interpretation: reviewed, normal Labs Laboratory Tests Test 11/19/18 15:10 11/19/18 15:40 11/19/18 20:20 11/20/18 04:45 White Blood Count 8.9 K/UL (4.8-10.8) 5.7 K/UL (4.8-10.8) Red Blood Count 3.20 M/UL (4.70-6.10) L 3.07 M/UL (4.70-6.10) L Hemoglobin 10.5 G/DL (14.2-18.0) L 10.1 G/DL (14.2-18.0) L Hematocrit 29.1 % (42.0-52.0) L 29.2 % (42.0-52.0) L Mean Corpuscular Volume 91 FL (80-99) 95 FL (80-99) Mean Corpuscular Hemoglobin 32.8 PG (27.0-31.0) H 32.8 PG (27.0-31.0) H Mean Corpuscular Hemoglobin Concent 36.0 G/DL (32.0-36.0) 34.5 G/DL (32.0-36.0) Red Cell Distribution Width 11.2 % (11.6-14.8) L 11.8 % (11.6-14.8) Platelet Count 171 K/UL (150-450) 168 K/UL (150-450) Mean Platelet Volume 5.4 FL (6.5-10.1) L 6.1 FL (6.5-10.1) L Neutrophils (%) (Auto) 73.3 % (45.0-75.0) 66.7 % (45.0-75.0) Lymphocytes (%) (Auto) 14.6 % (20.0-45.0) L 23.7 % (20.0-45.0) Monocytes (%) (Auto) 8.6 % (1.0-10.0) 7.7 % (1.0-10.0) Eosinophils (%) (Auto) 1.8 % (0.0-3.0) 1.4 % (0.0-3.0) Basophils (%) (Auto) 1.7 % (0.0-2.0) 0.5 % (0.0-2.0) Prothrombin Time 10.0 SEC (9.30-11.50) 10.2 SEC (9.30-11.50) Prothromb Time International Ratio 0.9 (0.9-1.1) 1.0 (0.9-1.1) Activated Partial Thromboplast Time 22 SEC (23-33) L 28 SEC (23-33) Sodium Level 139 MMOL/L (136-145) 141 MMOL/L (136-145) Potassium Level 4.5 MMOL/L (3.5-5.1) 4.5 MMOL/L (3.5-5.1) Chloride Level 103 MMOL/L (98-107) 107 MMOL/L (98-107) Carbon Dioxide Level 28 MMOL/L (21-32) 26 MMOL/L (21-32) Anion Gap 8 mmol/L (5-15) 8 mmol/L (5-15) Blood Urea Nitrogen 34 mg/dL (7-18) H 27 mg/dL (7-18) H Creatinine 2.5 MG/DL (0.55-1.30) H 2.1 MG/DL (0.55-1.30) H Estimat Glomerular Filtration Rate mL/min (>60) mL/min (>60) Glucose Level 240 MG/DL (74-106) H 90 MG/DL (74-106) # Calcium Level 9.3 MG/DL (8.5-10.1) 9.0 MG/DL (8.5-10.1) Total Bilirubin 0.3 MG/DL (0.2-1.0) 0.4 MG/DL (0.2-1.0) Aspartate Amino Transf (AST/SGOT) 25 U/L (15-37) 27 U/L (15-37) Alanine Aminotransferase (ALT/SGPT) 24 U/L (12-78) 21 U/L (12-78) Alkaline Phosphatase 69 U/L (46-116) 69 U/L (46-116) Total Creatine Kinase 63 U/L (26-308) 63 U/L (26-308) Troponin I 0.000 ng/mL (0.000-0.056) 0.013 ng/mL (0.000-0.056) Pro-B-Type Natriuretic Peptide 1064 pg/mL (0-125) H 682 pg/mL (0-125) H Total Protein 6.9 G/DL (6.4-8.2) 6.7 G/DL (6.4-8.2) Albumin 3.7 G/DL (3.4-5.0) 3.4 G/DL (3.4-5.0) Globulin 3.2 g/dL 3.3 g/dL Albumin/Globulin Ratio 1.2 (1.0-2.7) 1.0 (1.0-2.7) Lipase 313 U/L (73-393) Urine Color Yellow Urine Appearance Clear Urine pH 6 (4.5-8.0) Urine Specific [place] 1.020 (1.005-1.035) Urine Protein 4+ (NEGATIVE) H Urine Glucose (UA) Negative (NEGATIVE) Urine Ketones Negative (NEGATIVE) Urine Blood Negative (NEGATIVE) Urine Nitrite Negative (NEGATIVE) Urine Bilirubin Negative (NEGATIVE) Urine Urobilinogen Normal MG/DL (0.0-1.0) Urine Leukocyte Esterase Negative (NEGATIVE) Urine RBC 0-2 /HPF (0 - 0) H Urine WBC 0-2 /HPF (0 - 0) Urine Squamous Epithelial Cells None /LPF (NONE/OCC) Urine Bacteria Few /HPF (NONE) Urine Eosinophils Negative (NONE SEEN) Urine Osmolality 475 mOsm/kg (429-449) H Urine Random Creatinine Pending Urine Random Microalbumin Pending Urine Random Sodium 67 mmol/L (20-110) Urine Microalbumin/Creatinine Ratio Pending Uric Acid 6.1 MG/DL (2.6-7.2) 6.3 MG/DL (2.6-7.2) Hemoglobin A1c 6.1 % (4.3-6.0) H Phosphorus Level 4.7 MG/DL (2.5-4.9) Magnesium Level 1.9 MG/DL (1.8-2.4) Iron Level 59 ug/dL (50-175) Total Iron Binding Capacity 222 ug/dL (250-450) L Percent Iron Saturation 27 % (15-50) Unsaturated Iron Binding 163 ug/dL (112-346) Ferritin 167 NG/ML (8-388) Gamma Glutamyl Transpeptidase 37 U/L (5-85) C-Reactive Protein, Quantitative < 0.4 mg/dL (0.00-0.90) Triglycerides Level 57 MG/DL (30-150) Cholesterol Level 131 MG/DL (< 200) LDL Cholesterol 74 mg/dL (<100) HDL Cholesterol 46 MG/DL (40-60) Cholesterol/HDL Ratio 2.8 (3.3-4.4) L Vitamin B12 Level 771 PG/ML (193-986) Folate 81.9 NG/ML (8.6-58.9) H Thyroid Stimulating Hormone (TSH) 1.829 uiU/mL (0.358-3.740) General Appearance: well appearing, no apparent distress, alert Head: normocephalic EENT: PERRL/EOMI, normal ENT inspection Neck: supple Respiratory: normal breath sounds, no respiratory distress Cardiovascular: normal rate Gastrointestinal: normal inspection, non tender, soft, normal bowel sounds, non -distended Rectal: deferred Genitourinary: deferred Musculoskeletal: normal inspection, back normal Neurologic: normal inspection, alert, oriented x3, responsive Psychiatric: normal inspection, judgement/insight normal, memory normal Skin: normal inspection, normal color, no rash, warm/dry, palpation normal, well hydrated Lymphatic: normal inspection, no adenopathy Current Medications Current Medications Medications (Trade) Dose Ordered Sig/Joelle Route PRN Reason Start Time Stop Time Status Last Admin Dose Admin Acetaminophen (Tylenol) 650 mg Q4H PRN ORAL FEVER 11/19/18 17:49 12/19/18 17:48 Albuterol/ Ipratropium (Albuterol/ Ipratropium) 3 ml Q4H PRN HHN Shortness of Breath 11/19/18 17:50 11/24/18 17:49 Aspirin (ASA) 162 mg DAILY ORAL 11/20/18 09:00 12/20/18 08:59 11/20/18 08:17 Dextrose (Dextrose 50%) 25 ml Q30M PRN IV Hypoglycemia 11/19/18 18:56 12/19/18 18:55 Dextrose (Dextrose 50%) 50 ml Q30M PRN IV Hypoglycemia 11/19/18 19:00 12/19/18 18:59 Enalaprilat (Vasotec) 2.5 mg Q6H PRN IV sbp more than 160 11/19/18 17:50 12/19/18 17:49 Heparin Sodium (Porcine) (Heparin 5000 units/ml) 5,000 units EVERY 12 HOURS SUBQ 11/19/18 21:00 12/19/18 20:59 11/20/18 08:19 Insulin Aspart (NovoLOG) BEFORE MEALS AND HS SUBQ 11/19/18 21:00 12/19/18 20:59 11/20/18 11:18 Morphine Sulfate (Morphine Sulfate) 2 mg Q4H PRN IVP severe Pain (Pain Scale 7-10) 11/19/18 17:45 11/26/18 17:44 Nitroglycerin (Ntg) 0.4 mg Q5MIN X 3 DOSES PRN SL Prn Chest Pain 11/19/18 17:49 12/19/18 17:48 Ondansetron HCl (Zofran) 4 mg Q6H PRN IVP Nausea & Vomiting 11/19/18 17:50 12/19/18 17:49 Polyethylene Glycol (Miralax) 17 gm DAILYPRN PRN ORAL Constipation 11/19/18 17:49 12/19/18 17:48 Temazepam (Restoril) 15 mg HSPRN PRN ORAL Insomnia 11/19/18 21:00 11/26/18 20:59 GI: Plan Problems: (1) Anemia (2) Intractable nausea and vomiting Plan Will consider GI procedures pending work-up Patient on ADA diet, tolerating anemia work up zofran prn OB stool r/o GI bleed monitor H&H, prn transfusions bowel regimen ppi fu labs fu cardiology recs Discussed with Dr. Carranza. Thank you for this patient referral, we will follow. The patient was seen and examined at bedside and all new and available data was reviewed in the patients chart. I agree with the above findings, impression and plan. (Patient seen earlier today. Signature stamp does not reflect patient encounter time.). - MD Diana Yeager,[facility] CorporationLuis IT SECURITY MANAGER Nov 20, 2018 12:58
--- NOTE | 2018-11-20 14:16 | Consultation ---
Consult Note Consult Note asked to eval for renal failure HPI Patient was brought in by EMS after family called for weakness. The patient denies any chest pain. Paramedics noted that the patient was bradycardic. There is a language barrier however nurses will translate. No fevers, chills, chest pain, palpitations, nausea, vomiting, diarrhea, dysuria , abdominal pain, shortness of breath, depression, visual changes, headache. No Known Allergies (Unverified , 11/19/18) Past Medical History: No History, Except For Hx Hypertension: Yes Hx Diabetes: Yes examined hard of hearing data reviewed . Assessment/Plan ARF (acute renal failure) ? Underlying CKD Bradycardia Intractable nausea and vomiting Hypertension Alzheimer's dementia Anemia Slow Hydrate monitor renal parameters Urine studies keep BP and BS Anemia shah Per orders Sam Robles MD Nov 20, 2018 14:16
[2018-11-20] MEDS ORDERED: HydrALAZINE 25mg tab ORAL PRN (14:30)
--- NOTE | 2018-11-20 15:32 | NUR ---
*-* INSURANCE *-* ALL CLINICALS AND REVIEWS HAVE BEEN FAXED TO: [facility] P:[phone] F:[phone] (FAX CLINICALS)
[2018-11-20 15:43] VITALS: BP 127/55
--- NOTE | 2018-11-20 17:18 | History & Physical ---
History and Physical History & Physicial Dictated for Int Med-Dr May no. [id number]. Minh Herman MD Nov 20, 2018 17:18
--- NOTE | 2018-11-20 18:54 | NUR ---
CASE MANAGEMENT: INITIAL REVIEW 83 YO M BIBA FROM HOME CC: NEAR SYNCOPAL EPISODE PMHx: HTN. DM. SI:BRADYCARDIA. WEAKNESS. HR 50 RR 16 B/P 140/55 SATS 98% ON RA BUN 34 CR 2.5 GLU 240 BNP 1064 IS: NS BOLUS X1 CXR (-) US RENAL (Impression: Somewhat atrophic right kidney. Increased renal echogenicity bilaterally, consistent with medical renal disease. Mild fullness of the left renal collecting system, of uncertain significance incidental finding bilateral renal cysts) PATIENT ADMITTED TO TELE 11/19/2018 @ 1638 DCP: PATIENT TO BE DISCHARGED TO HOME ONCE MEDICALLY CLEARED. PLAN OF CARE: CARDIO EVAL
--- NOTE | 2018-11-20 19:00 | Consultation ---
DATE OF CONSULTATION: 11/19/2018 CARDIOLOGY CONSULTATION CONSULTING PHYSICIAN: David Jain M.D. REFERRING PHYSICIAN: 1. Biju May M.D. 2. Kevin Nazario M.D. REASON FOR REFERRAL: Bradycardia. HISTORY OF PRESENT ILLNESS: Information was obtained from the patient, one of our nursing staff who speaks German, as well as the daughter. Apparently, it is a recurrent problem for this patient who has bouts of nausea and vomiting on several occasions and has been seen by his primary care doctor last week and is under care of a telecom manager as well. He denies having had any cardiac problems according to himself, although he has had an angiogram before. He has never been told that he has a slow heart rate and apparently the angiogram did not result in any intervention as we understand talking to the patient. His main issue was nausea and vomiting. His daughter indicates that he has had some pain in the back of the neck and he has had this nausea and vomiting. Yesterday after the nausea and vomiting, he felt really weak, he was dizzy, and he was not able walk. There was no spinning sensation to the dizziness, he has inability to walk. He told me that he was feeling weak in his legs and really did not pass out, but just felt really weak. PAST MEDICAL HISTORY: Positive for diabetes, high blood pressure, high cholesterol. No history of heart attack. No cancer. No stroke. No hepatitis. No tuberculosis. No asthma. No emphysema. No stomach ulcers. No kidney problems, liver problems, thyroid problems, HIV, or AIDS. ALLERGIES: He is not allergic to any medications. SOCIAL HISTORY: He does not smoke or drink at this time. REVIEW OF SYSTEMS: GASTROINTESTINAL: Positive for nausea and vomiting. No diarrhea. No bloody or black stools. GENITOURINARY: He has some hesitancy in terms of urination. PULMONARY: Denies any coughing or wheezing. CONSTITUTIONAL: No fevers, but he felt somewhat chills yesterday. NEUROLOGIC: He denies any paralysis or weakness in arms or legs. No blurred vision. No double vision. He did have the dizziness as mentioned. No numbness or tingling sensation in his arms. MEDICATIONS: His medications are numerous, but he is not aware of the name. He was given pharmacy, the nurse will be contacting to obtain that list of medications. PHYSICAL EXAMINATION: GENERAL: Shows to be elderly gentleman, in no respiratory distress. NECK: Supple. No jugular venous distention. No abdominojugular reflux noted. There is a bruit on the right side and some extension of cardiac murmur on the left side. LUNGS: Otherwise clear to auscultation. CARDIAC: Regular rhythm. Borderline bradycardia. No heaves or thrills noted. A faint systolic ejection murmur is noted. ABDOMEN: Soft, nontender. Positive bowel sounds. EXTREMITIES: There is no clubbing, cyanosis, or edema. NEUROLOGICAL: He is awake, alert, responsive, in no respiratory distress. LABORATORY VALUES: White count 5.7, hemoglobin 10.1, and platelet count 168. Sodium is 139, potassium 4.5, chloride 103, bicarb 28, BUN of 34, creatinine 2.5, glucose 240. Calcium is 9.3. Liver function tests are normal. ProBNP 1064. Albumin of 3.7. Lipase of 313. His white count 8.9, hemoglobin 10.5, and platelet count of 171. His coags, INR 0.9 and PTT of 22. His urinalysis, 4+ protein. EKG shows sinus bradycardia, rate 52, no significant ST or T-wave abnormalities. ASSESSMENT AND PLAN: 1. Bradycardia. 2. Recurrent bouts of nausea and vomiting over the past few days. 3. Diabetes mellitus. 4. Hypertension. 5. Hyperlipidemia. This patient was seen in cardiac consultation. The patient's blood pressure is excellent despite the fact that he has had bradycardia. He is able to maintain adequate blood pressure level. Information will be obtained regarding his medication list soon to see if any of his medications are contributing to his bradycardia. The etiology of recurrent nausea and vomiting to be determined. He really does not have anything on his chemistry panel so far that we could identified cause. It appears he has not been seen by GI. I will follow the patient along with you. David Jain M.D. DR: Bryson JOB#: [id number] CC:
--- NOTE | 2018-11-20 19:05 | NUR ---
HAND-OFF: Report given to FUNMI PYLE.
--- NOTE | 2018-11-20 19:10 | NUR ---
NURSE NOTES: Received pt and report from LASHANDA Burks. Observe pt resting in bed and eating dinner. 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 Bed is in the lowest position and locked. Call light within reach. No signs and symptoms of chest pain or acute distress noted at this time. Will continue plan of care.
[2018-11-20 20:00] VITALS: BP 154/69
--- NOTE | 2018-11-20 20:15 | History and Physical Report ---
DATE OF ADMISSION: 11/19/2018 CHIEF COMPLAINT: The patient is an 83-year-old male, who presents with a chief complaint of generalized weakness. HISTORY OF PRESENT ILLNESS: The patient apparently called 911 for generalized weakness. The patient denies chest pain or shortness of breath. The patient was found to have bradycardia into the 50s. The patient was transported to [facility]. The patient is admitted for generalized weakness and bradycardia. REVIEW OF SYSTEMS: CONSTITUTIONAL: The patient denies weight loss or weight gain. The patient denies fevers or chills. HEENT: The patient denies ear or throat pain. The patient denies headache. CARDIOVASCULAR: The patient denies palpitations or chest pain. CHEST: The patient denies wheeze or shortness of breath. ABDOMEN: The patient denies nausea, vomiting, diarrhea, or constipation. GENITOURINARY: The patient denies dysuria or increased frequency of urination. NEUROMUSCULAR: The patient complains of generalized weakness. The patient denies seizures. PAST MEDICAL HISTORY: Significant for: 1. Hypertension 2. Diabetes type 2. 3. Alzheimer's dementia. PAST SURGICAL HISTORY: The patient denies. CURRENT MEDICATIONS: 1. Tradjenta 5 mg 1 tablet p.o. daily. 2. Amlodipine 5 mg p.o. daily. 3. Benazepril 40 mg p.o. daily. 4. Aricept 5 mg p.o. daily. 5. Creon 24,000 units p.o. 3 times daily. ALLERGIES: No known drug allergies. SOCIAL HISTORY: The patient is and lives with his . The patient denies tobacco or alcohol use. PHYSICAL EXAMINATION: VITAL SIGNS: Temperature 98, respirations 18, pulse 67, and blood pressure 167/70. GENERAL: The patient is a well-nourished and well-nourished male, in no apparent distress. HEENT: Eyes, pupils are equal and responsive to light and accommodation. Extraocular movements are intact. NECK: Supple without lymphadenopathy. CHEST: Lungs are clear to auscultation bilaterally without wheezes or rales. CARDIOVASCULAR: Regular rhythm and rate. S1 and S2 are normal without murmurs, rubs, or gallops. ABDOMEN: Soft, nontender, and nondistended. Positive bowel sounds. No evidence of hepatosplenomegaly. Currently, no rebound or guarding noted. EXTREMITIES: Negative for clubbing, cyanosis, or edema. RECTAL/GENITAL: Not performed. NEUROLOGIC: Cranial nerves II through XII are grossly intact without focal deficits. Motor strength is 5/5 bilaterally. Deep tendon reflexes are 2+ plantar. LABORATORY STUDIES: WBC 8.9, hemoglobin 10.5, hematocrit 29.1, and platelets 171,000. Sodium 139, potassium 4.5, chloride 103, CO2 20, BUN 34, creatinine 2.5, and glucose 240. BNP elevated at 1064. Troponin 0.0. An EKG demonstrated sinus bradycardia at approximately 52 beats per minute. There are no acute ST changes or Q-waves noted. ASSESSMENT: This is an 83-year-old male. 1. Generalized weakness. 2. Bradycardia. 3. Diabetes type 2. 4. Hypertension. 5. Alzheimer's dementia. TREATMENT: 1. Bradycardia. A Cardiology consultation has been obtained with Dr. David Jain. We will follow recommendations of Cardiology. 2. Congestive heart failure. As above, a Cardiology consultation has been obtained with Dr. David Jain. We will follow recommendations of Dr. Jain. 3. Acute renal failure. A Nephrology consultation has been obtained with Dr. Robles. We will follow recommendations of Nephrology. 4. Diabetes type 2. A NovoLog sliding scale has been instituted. 5. Hypertension. Continue amlodipine and benazepril as above. 6. Alzheimer's dementia. Continue Aricept as above. Minh Herman M.D. DR: DEL JOB#: [id number] CC:
--- NOTE | 2018-11-20 20:39 | Cardiology Report ---
APPROVED REPORT EXAM: Two-dimensional and M-mode echocardiogram with Doppler and color Doppler. INDICATION LV function Normal left ventricular chamber size, systolic function and wall motion. Left ventricular ejection fraction estimated to be 65 %. Mild left ventricular hypertrophy. No evidence of pericardial effusion. All other cardiac chamber sizes are within normal limits. Focal aortic valve sclerosis with adequate cusp excursion. Thickened mitral valve leaflets with normal excursion. Mitral annulus and aortic root calcification. Pulmonic valve not well visualized. Normal tricuspid valve structure. IVC at normal size with physiologic collapse. A color flow and spectral Doppler study was performed and revealed: Mild aortic insufficiency. Mild mitral regurgitation. Mitral diastolic velocities suggest reduced left ventricular relaxation c/w mild LV diastolic dysfunction (Grade I). Trace tricuspid regurgitation. Tricuspid systolic velocities suggests peak right ventricular systolic pressure of 16 mmHg.
[2018-11-21] VITALS: BP 140/64
[2018-11-21 04:00] VITALS: BP 142/64
[2018-11-21] MEDS: NovoLOG Insulin Flexpen SUBQ SCH ×4 (06:30→21:52)
[2018-11-21 06:51] LABS: INR 0.9 (0.9-1.1)
[2018-11-21 07:21] LABS: BASOPHILS % (AUTO) 0.9 % (0.0-2.0); EOSINOPHILS % (AUTO) 2.4 % (0.0-3.0); HEMATOCRIT 29.5 % (42.0-52.0); HEMOGLOBIN 10.2 G/DL (14.2-18.0); LYMPHOCYTES % (AUTO) 24.6 % (20.0-45.0); MEAN CORPUSCULAR VOLUME 94 FL (80-99); MONOCYTES % (AUTO) 9.7 % (1.0-10.0); NEUTROPHILS % (AUTO) 62.4 % (45.0-75.0); PLATELET COUNT 157 K/UL (150-450); RED BLOOD COUNT 3.13 M/UL (4.70-6.10); RED CELL DISTRIBUTION WIDTH 11.8 % (11.6-14.8); WHITE BLOOD COUNT 4.9 K/UL (4.8-10.8)
--- NOTE | 2018-11-21 07:21 | NUR ---
NURSE NOTES: Report received from My, RN. Patient Malay speaking with minimal Thai. Denies any pain or SOB. L AC 18g SL. Bed on lowest position, side rails upx2, brakes engaged. Call light within easy reach.
--- NOTE | 2018-11-21 07:30 | NUR ---
HAND-OFF: Report given to LASHANDA Patel.
[2018-11-21 07:43] LABS: ANION GAP 8 mmol/L (5-15); BLOOD UREA NITROGEN 33 mg/dL (7-18); CALCIUM 8.8 MG/DL (8.5-10.1); CARBON DIOXIDE 26 MMOL/L (21-32); CHLORIDE 107 MMOL/L (98-107); FERRITIN 177 NG/ML (8-388); POTASSIUM 4.4 MMOL/L (3.5-5.1); SODIUM 141 MMOL/L (136-145)
[2018-11-21 08:00] VITALS: BP 143/59
[2018-11-21 08:06] LABS: % IRON SATURATION 42 % (15-50); IRON 98 ug/dL (50-175); TOTAL IRON BINDING CAPACITY 232 ug/dL (250-450)
[2018-11-21] MEDS: Heparin 5000 units/ml inj SUBQ SCH ×2 (09:00→21:51)
--- NOTE | 2018-11-21 09:27 | GI Progress Note ---
Assessment/Plan Problems: (1) Bradycardia ICD Codes: R00.1 - Bradycardia, unspecified SNOMED: 57722597 (2) Anemia ICD Codes: D64.9 - Anemia, unspecified SNOMED: 881320072 (3) Intractable nausea and vomiting ICD Codes: R11.2 - Nausea with vomiting, unspecified SNOMED: 072165518 Status: stable Status Narrative Discussed with Dr. Carranza Assessment/Plan anemia work up reviewed, stable H&H No plans for GI procedures at this time Patient on ADA diet, tolerating zofran prn OB stool r/o GI bleed monitor H&H, prn transfusions bowel regimen ppi fu labs fu cardiology recs The patient was seen and examined at bedside and all new and available data was reviewed in the patients chart. I agree with the above findings, impression and plan. (Patient seen earlier today. Signature stamp does not reflect patient encounter time.). - Harmeet Carranza MD Subjective Subjective Denies any abdominal pain Denies any nausea vomiting Objective Last 24 Hour Vital Signs Date Time Temp Pulse Resp B/P (MAP) Pulse Ox O2 Delivery O2 Flow Rate FiO2 11/21/18 04:00 61 11/21/18 04:00 98.9 62 19 142/64 (90) 97 11/21/18 00:00 98.2 60 19 140/64 (89) 96 11/21/18 00:00 68 11/20/18 21:00 Room Air 11/20/18 20:00 58 11/20/18 20:00 98.0 61 17 154/69 (97) 96 11/20/18 15:43 98.4 78 18 127/55 (79) 96 11/20/18 15:28 58 11/20/18 12:00 98.4 70 18 128/60 (82) 96 11/20/18 11:45 63 Intake and Output 11/20/18 11/21/18 19:00 07:00 Intake Total 660 ml Output Total 400 ml 750 ml Balance 260 ml -750 ml Intake Oral 660 ml Output Urine Total 400 ml 750 ml # Voids 2 Laboratory Tests Test 11/21/18 05:40 White Blood Count 4.9 K/UL (4.8-10.8) Red Blood Count 3.13 M/UL (4.70-6.10) L Hemoglobin 10.2 G/DL (14.2-18.0) L Hematocrit 29.5 % (42.0-52.0) L Mean Corpuscular Volume 94 FL (80-99) Mean Corpuscular Hemoglobin 32.5 PG (27.0-31.0) H Mean Corpuscular Hemoglobin Concent 34.5 G/DL (32.0-36.0) Red Cell Distribution Width 11.8 % (11.6-14.8) Platelet Count 157 K/UL (150-450) Mean Platelet Volume 6.2 FL (6.5-10.1) L Neutrophils (%) (Auto) 62.4 % (45.0-75.0) Lymphocytes (%) (Auto) 24.6 % (20.0-45.0) Monocytes (%) (Auto) 9.7 % (1.0-10.0) Eosinophils (%) (Auto) 2.4 % (0.0-3.0) Basophils (%) (Auto) 0.9 % (0.0-2.0) Reticulocyte Count Pending Prothrombin Time 10.0 SEC (9.30-11.50) Prothromb Time International Ratio 0.9 (0.9-1.1) Activated Partial Thromboplast Time 31 SEC (23-33) Sodium Level 141 MMOL/L (136-145) Potassium Level 4.4 MMOL/L (3.5-5.1) Chloride Level 107 MMOL/L (98-107) Carbon Dioxide Level 26 MMOL/L (21-32) Anion Gap 8 mmol/L (5-15) Blood Urea Nitrogen 33 mg/dL (7-18) H Creatinine 2.0 MG/DL (0.55-1.30) H Estimat Glomerular Filtration Rate mL/min (>60) Glucose Level 90 MG/DL (74-106) Calcium Level 8.8 MG/DL (8.5-10.1) Iron Level 98 ug/dL (50-175) Total Iron Binding Capacity 232 ug/dL (250-450) L Percent Iron Saturation 42 % (15-50) Unsaturated Iron Binding 134 ug/dL (112-346) Ferritin 177 NG/ML (8-388) Troponin I 0.009 ng/mL (0.000-0.056) Carcinoembryonic Antigen Pending Vitamin B12 Level 735 PG/ML (193-986) Folate 58.5 NG/ML (8.6-58.9) Thyroid Stimulating Hormone (TSH) 1.606 uiU/mL (0.358-3.740) Free Thyroxine 1.06 NG/DL (0.76-1.46) Height (Feet): 5 Height (Inches): 4.00 Weight (Pounds): 115 General Appearance: WD/WN, no apparent distress, alert Cardiovascular: normal rate Respiratory/Chest: normal breath sounds, no respiratory distress Abdominal Exam: normal bowel sounds, non tender, soft Extremities: normal range of motion, non-tender Jacinto Ortiz NP Nov 21, 2018 09:27
[2018-11-21] MEDS: Donepezil 5mg Tab ORAL SCH (09:32)
[2018-11-21] MEDS: Aspirin Baby 81mg ORAL SCH (09:33)
[2018-11-21] MEDS: Pancrelipase Dr Cap ORAL SCH ×3 (09:33→17:55)
--- NOTE | 2018-11-21 10:30 | NUR ---
NURSE NOTES: Reminder given with the help of Estonian speaking RN, regarding OB stool.
--- NOTE | 2018-11-21 11:04 | Internal Med Progress Note ---
Subjective Date of Service: Nov 21, 2018 Physician Name Minh Herman Attending Physician Biju May MD Current Medications Medications (Trade) Dose Ordered Sig/Joelle Route PRN Reason Start Time Stop Time Status Last Admin Dose Admin Acetaminophen (Tylenol) 650 mg Q4H PRN ORAL FEVER 11/19/18 17:49 12/19/18 17:48 Albuterol/ Ipratropium (Albuterol/ Ipratropium) 3 ml Q4H PRN HHN Shortness of Breath 11/19/18 17:50 11/24/18 17:49 Amylase/Lipase/ Protease (Zenpep) 4 ea TID ORAL 11/21/18 09:00 12/21/18 08:59 11/21/18 09:33 Aspirin (ASA) 162 mg DAILY ORAL 11/20/18 09:00 12/20/18 08:59 11/21/18 09:33 Dextrose (Dextrose 50%) 25 ml Q30M PRN IV Hypoglycemia 11/19/18 18:56 12/19/18 18:55 Dextrose (Dextrose 50%) 50 ml Q30M PRN IV Hypoglycemia 11/19/18 19:00 12/19/18 18:59 Donepezil HCl (Aricept) 5 mg DAILY ORAL 11/21/18 09:00 12/21/18 08:59 11/21/18 09:32 Heparin Sodium (Porcine) (Heparin 5000 units/ml) 5,000 units EVERY 12 HOURS SUBQ 11/19/18 21:00 12/19/18 20:59 11/20/18 21:29 Hydralazine HCl (Apresoline) 25 mg Q4H PRN ORAL bp over 160 syst 11/20/18 14:30 12/20/18 14:29 Insulin Aspart (NovoLOG) BEFORE MEALS AND HS SUBQ 11/19/18 21:00 12/19/18 20:59 11/20/18 21:28 Morphine Sulfate (Morphine Sulfate) 2 mg Q4H PRN IVP severe Pain (Pain Scale 7-10) 11/19/18 17:45 11/26/18 17:44 Nitroglycerin (Ntg) 0.4 mg Q5MIN X 3 DOSES PRN SL Prn Chest Pain 11/19/18 17:49 12/19/18 17:48 Ondansetron HCl (Zofran) 4 mg Q6H PRN IVP Nausea & Vomiting 11/19/18 17:50 12/19/18 17:49 Pantoprazole (Protonix) 40 mg EVERY 12 HOURS ORAL 11/20/18 21:00 12/20/18 20:59 11/21/18 09:33 Polyethylene Glycol (Miralax) 17 gm DAILYPRN PRN ORAL Constipation 11/19/18 17:49 12/19/18 17:48 Temazepam (Restoril) 15 mg HSPRN PRN ORAL Insomnia 11/19/18 21:00 11/26/18 20:59 Allergies: Coded Allergies: No Known Allergies (Unverified , 11/19/18) ROS Limited/Unobtainable: No Constitutional: Reports: no symptoms HEENT: Reports: no symptoms Cardiovascular: Reports: no symptoms Respiratory: Reports: no symptoms Gastrointestinal/Abdominal: Reports: nausea Genitourinary: Reports: no symptoms Neurologic/Psychiatric: Reports: no symptoms Subjective 83 YO M admitted with nausea,vomiting and generalized weakness. Now bradycardia. Cover for Int Aristeo-Dr May Objective Last Vital Signs Date Time Temp Pulse Resp B/P (MAP) Pulse Ox O2 Delivery O2 Flow Rate FiO2 11/21/18 08:00 97.6 65 18 143/59 (87) 98 11/20/18 21:00 Room Air Laboratory Tests Test 11/21/18 05:40 White Blood Count 4.9 K/UL (4.8-10.8) Red Blood Count 3.13 M/UL (4.70-6.10) L Hemoglobin 10.2 G/DL (14.2-18.0) L Hematocrit 29.5 % (42.0-52.0) L Mean Corpuscular Volume 94 FL (80-99) Mean Corpuscular Hemoglobin 32.5 PG (27.0-31.0) H Mean Corpuscular Hemoglobin Concent 34.5 G/DL (32.0-36.0) Red Cell Distribution Width 11.8 % (11.6-14.8) Platelet Count 157 K/UL (150-450) Mean Platelet Volume 6.2 FL (6.5-10.1) L Neutrophils (%) (Auto) 62.4 % (45.0-75.0) Lymphocytes (%) (Auto) 24.6 % (20.0-45.0) Monocytes (%) (Auto) 9.7 % (1.0-10.0) Eosinophils (%) (Auto) 2.4 % (0.0-3.0) Basophils (%) (Auto) 0.9 % (0.0-2.0) Reticulocyte Count 1.4 % (0.5-2.0) Prothrombin Time 10.0 SEC (9.30-11.50) Prothromb Time International Ratio 0.9 (0.9-1.1) Activated Partial Thromboplast Time 31 SEC (23-33) Sodium Level 141 MMOL/L (136-145) Potassium Level 4.4 MMOL/L (3.5-5.1) Chloride Level 107 MMOL/L (98-107) Carbon Dioxide Level 26 MMOL/L (21-32) Anion Gap 8 mmol/L (5-15) Blood Urea Nitrogen 33 mg/dL (7-18) H Creatinine 2.0 MG/DL (0.55-1.30) H Estimat Glomerular Filtration Rate mL/min (>60) Glucose Level 90 MG/DL (74-106) Calcium Level 8.8 MG/DL (8.5-10.1) Iron Level 98 ug/dL (50-175) Total Iron Binding Capacity 232 ug/dL (250-450) L Percent Iron Saturation 42 % (15-50) Unsaturated Iron Binding 134 ug/dL (112-346) Ferritin 177 NG/ML (8-388) Troponin I 0.009 ng/mL (0.000-0.056) Carcinoembryonic Antigen Pending Vitamin B12 Level 735 PG/ML (193-986) Folate 58.5 NG/ML (8.6-58.9) Thyroid Stimulating Hormone (TSH) 1.606 uiU/mL (0.358-3.740) Free Thyroxine 1.06 NG/DL (0.76-1.46) Intake and Output 11/20/18 11/21/18 19:00 07:00 Intake Total 660 ml Output Total 400 ml 750 ml Balance 260 ml -750 ml Intake Oral 660 ml Output Urine Total 400 ml 750 ml # Voids 2 Objective PHYSICAL EXAMINATION: GENERAL: The patient is a well-nourished and well-nourished male, in no apparent distress. HEENT: Eyes, pupils are equal and responsive to light and accommodation. Extraocular movements are intact. NECK: Supple without lymphadenopathy. CHEST: Lungs are clear to auscultation bilaterally without wheezes or rales. CARDIOVASCULAR: Regular rhythm and rate. S1 and S2 are normal without murmurs, rubs, or gallops. ABDOMEN: Soft, nontender, and nondistended. Positive bowel sounds. No evidence of hepatosplenomegaly. Currently, no rebound or guarding noted. EXTREMITIES: Negative for clubbing, cyanosis, or edema. RECTAL/GENITAL: Not performed. NEUROLOGIC: Cranial nerves II through XII are grossly intact without focal deficits. Motor strength is 5/5 bilaterally. Deep tendon reflexes are 2+ plantar. Assessment/Plan Assessment/Plan ASSESSMENT: This is an 83-year-old male. 1. Generalized weakness. 2. Bradycardia. 3. Diabetes type 2. 4. Hypertension. 5. Alzheimer's dementia. 6. Intractable nausea/vomiting TREATMENT: 1. Bradycardia. A Cardiology consultation has been obtained with Dr. David Jain. We will follow recommendations of Cardiology. 2. Congestive heart failure. As above, a Cardiology consultation has been obtained with Dr. David Jain. We will follow recommendations of Dr. Jain. 3. Acute renal failure. A Nephrology consultation has been obtained with Dr. Robles. We will follow recommendations of Nephrology. 4. Diabetes type 2. A NovoLog sliding scale has been instituted. 5. Hypertension. Continue amlodipine and benazepril as above. 6. Alzheimer's dementia. Continue Aricept as above. 7. Tolerating diabetic diet; Follow Minh Galarza MD Nov 21, 2018 11:04
--- NOTE | 2018-11-21 11:05 | NUR ---
*-* INSURANCE *-* ALL CLINICALS AND REVIEWS HAVE BEEN FAXED TO: [facility] [phone] [phone] (FAX CLINICALS)
--- NOTE | 2018-11-21 11:24 | Pulmonology Progress Note ---
Assessment/Plan Problems: (1) Bradycardia (2) Intractable nausea and vomiting (3) ARF (acute renal failure) (4) Hypertension (5) Alzheimer's dementia Assessment/Plan heart rate has been between 55-70 no new complains first degree av block cardiology notes reviewed check electrolytes, creatinine slightly lower, f/u renal US. probably some diabetic and hypertensive nephropathy Subjective ROS Limited/Unobtainable: No Constitutional: Reports: no symptoms Respiratory: Reports: no symptoms Allergies: Coded Allergies: No Known Allergies (Unverified , 11/19/18) Objective Last 24 Hour Vital Signs Date Time Temp Pulse Resp B/P (MAP) Pulse Ox O2 Delivery O2 Flow Rate FiO2 11/21/18 08:00 97.6 65 18 143/59 (87) 98 11/21/18 08:00 73 11/21/18 04:00 61 11/21/18 04:00 98.9 62 19 142/64 (90) 97 11/21/18 00:00 98.2 60 19 140/64 (89) 96 11/21/18 00:00 68 11/20/18 21:00 Room Air 11/20/18 20:00 58 11/20/18 20:00 98.0 61 17 154/69 (97) 96 11/20/18 15:43 98.4 78 18 127/55 (79) 96 11/20/18 15:28 58 11/20/18 12:00 98.4 70 18 128/60 (82) 96 11/20/18 11:45 63 Intake and Output 11/20/18 11/21/18 19:00 07:00 Intake Total 660 ml Output Total 400 ml 750 ml Balance 260 ml -750 ml Intake Oral 660 ml Output Urine Total 400 ml 750 ml # Voids 2 General Appearance: WD/WN HEENT: normocephalic, atraumatic Respiratory/Chest: chest wall non-tender, lungs clear Cardiovascular: normal peripheral pulses, normal rate Abdomen: normal bowel sounds, soft, non tender Neurologic/Psychiatric: 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 grossly normal, no motor/sensory deficits Lymphatic: no neck adenopathy Laboratory Tests 11/21/18 05:40: White Blood Count 4.9, Red Blood Count 3.13L, Hemoglobin 10.2L, Hematocrit 29.5L , Mean Corpuscular Volume 94, Mean Corpuscular Hemoglobin 32.5H, Mean Corpuscular Hemoglobin Concent 34.5, Red Cell Distribution Width 11.8, Platelet Count 157, Mean Platelet Volume 6.2L, Neutrophils (%) (Auto) 62.4, Lymphocytes ( %) (Auto) 24.6, Monocytes (%) (Auto) 9.7, Eosinophils (%) (Auto) 2.4, Basophils (%) (Auto) 0.9, Reticulocyte Count 1.4, Prothrombin Time 10.0, Prothromb Time International Ratio 0.9, Activated Partial Thromboplast Time 31, Sodium Level 141, Potassium Level 4.4, Chloride Level 107, Carbon Dioxide Level 26, Anion Gap 8, Blood Urea Nitrogen 33H, Creatinine 2.0H, Estimat Glomerular Filtration Rate , Glucose Level 90, Calcium Level 8.8, Iron Level 98, Total Iron Binding Capacity 232L, Percent Iron Saturation 42, Unsaturated Iron Binding 134, Ferritin 177, Troponin I 0.009, Carcinoembryonic Antigen [Pending], Vitamin B12 Level 735, Folate 58.5, Thyroid Stimulating Hormone (TSH) 1.606, Free Thyroxine 1.06 Current Medications Medications (Trade) Dose Ordered Sig/Joelle Route PRN Reason Start Time Stop Time Status Last Admin Dose Admin Acetaminophen (Tylenol) 650 mg Q4H PRN ORAL FEVER 11/19/18 17:49 12/19/18 17:48 Albuterol/ Ipratropium (Albuterol/ Ipratropium) 3 ml Q4H PRN HHN Shortness of Breath 11/19/18 17:50 11/24/18 17:49 Amylase/Lipase/ Protease (Zenpep) 4 ea TID ORAL 11/21/18 09:00 12/21/18 08:59 11/21/18 09:33 Aspirin (ASA) 162 mg DAILY ORAL 11/20/18 09:00 12/20/18 08:59 11/21/18 09:33 Dextrose (Dextrose 50%) 25 ml Q30M PRN IV Hypoglycemia 11/19/18 18:56 12/19/18 18:55 Dextrose (Dextrose 50%) 50 ml Q30M PRN IV Hypoglycemia 11/19/18 19:00 12/19/18 18:59 Donepezil HCl (Aricept) 5 mg DAILY ORAL 11/21/18 09:00 12/21/18 08:59 11/21/18 09:32 Heparin Sodium (Porcine) (Heparin 5000 units/ml) 5,000 units EVERY 12 HOURS SUBQ 11/19/18 21:00 12/19/18 20:59 11/20/18 21:29 Hydralazine HCl (Apresoline) 25 mg Q4H PRN ORAL bp over 160 syst 11/20/18 14:30 12/20/18 14:29 Insulin Aspart (NovoLOG) BEFORE MEALS AND HS SUBQ 11/19/18 21:00 12/19/18 20:59 11/20/18 21:28 Morphine Sulfate (Morphine Sulfate) 2 mg Q4H PRN IVP severe Pain (Pain Scale 7-10) 11/19/18 17:45 11/26/18 17:44 Nitroglycerin (Ntg) 0.4 mg Q5MIN X 3 DOSES PRN SL Prn Chest Pain 11/19/18 17:49 12/19/18 17:48 Ondansetron HCl (Zofran) 4 mg Q6H PRN IVP Nausea & Vomiting 11/19/18 17:50 12/19/18 17:49 Pantoprazole (Protonix) 40 mg EVERY 12 HOURS ORAL 11/20/18 21:00 12/20/18 20:59 11/21/18 09:33 Polyethylene Glycol (Miralax) 17 gm DAILYPRN PRN ORAL Constipation 11/19/18 17:49 12/19/18 17:48 Temazepam (Restoril) 15 mg HSPRN PRN ORAL Insomnia 11/19/18 21:00 11/26/18 20:59 Kevin Nazario MD Nov 21, 2018 11:24
[2018-11-21 12:00] VITALS: BP 122/65
--- NOTE | 2018-11-21 13:05 | Nephrology Progress Note ---
Assessment/Plan Problem List: (1) Renal failure (ARF), acute on chronic (2) Bradycardia (3) Hypertension (4) Anemia Assessment ARF (acute renal failure) ? Underlying CKD : Per FADIA Bradycardia Intractable nausea and vomiting Hypertension Alzheimer's dementia Anemia Plan Slow Hydrate monitor renal parameters Urine studies keep BP and BS Anemia shah Per orders FADIA Impression: Somewhat atrophic right kidney Increased renal echogenicity bilaterally, consistent with medical renal disease Mild fullness of the left renal collecting system, of uncertain significance incidental finding bilateral renal cysts. Subjective ROS Limited/Unobtainable: No Constitutional: Reports: malaise Objective Objective Last 24 Hour Vital Signs Date Time Temp Pulse Resp B/P (MAP) Pulse Ox O2 Delivery O2 Flow Rate FiO2 11/21/18 09:00 Room Air 11/21/18 08:00 97.6 65 18 143/59 (87) 98 11/21/18 08:00 73 11/21/18 04:00 61 11/21/18 04:00 98.9 62 19 142/64 (90) 97 11/21/18 00:00 98.2 60 19 140/64 (89) 96 11/21/18 00:00 68 11/20/18 21:00 Room Air 11/20/18 20:00 58 11/20/18 20:00 98.0 61 17 154/69 (97) 96 11/20/18 15:43 98.4 78 18 127/55 (79) 96 11/20/18 15:28 58 Intake and Output 11/20/18 11/21/18 19:00 07:00 Intake Total 660 ml Output Total 400 ml 750 ml Balance 260 ml -750 ml Intake Oral 660 ml Output Urine Total 400 ml 750 ml # Voids 2 Current Medications Medications (Trade) Dose Ordered Sig/Joelle Route PRN Reason Start Time Stop Time Status Last Admin Dose Admin Acetaminophen (Tylenol) 650 mg Q4H PRN ORAL FEVER 11/19/18 17:49 12/19/18 17:48 Albuterol/ Ipratropium (Albuterol/ Ipratropium) 3 ml Q4H PRN HHN Shortness of Breath 11/19/18 17:50 11/24/18 17:49 Amylase/Lipase/ Protease (Zenpep) 4 ea TID ORAL 11/21/18 09:00 12/21/18 08:59 11/21/18 12:47 Aspirin (ASA) 162 mg DAILY ORAL 11/20/18 09:00 12/20/18 08:59 11/21/18 09:33 Dextrose (Dextrose 50%) 25 ml Q30M PRN IV Hypoglycemia 11/19/18 18:56 12/19/18 18:55 Dextrose (Dextrose 50%) 50 ml Q30M PRN IV Hypoglycemia 11/19/18 19:00 12/19/18 18:59 Donepezil HCl (Aricept) 5 mg DAILY ORAL 11/21/18 09:00 12/21/18 08:59 11/21/18 09:32 Heparin Sodium (Porcine) (Heparin 5000 units/ml) 5,000 units EVERY 12 HOURS SUBQ 11/19/18 21:00 12/19/18 20:59 11/20/18 21:29 Hydralazine HCl (Apresoline) 25 mg Q4H PRN ORAL bp over 160 syst 11/20/18 14:30 12/20/18 14:29 Insulin Aspart (NovoLOG) BEFORE MEALS AND HS SUBQ 11/19/18 21:00 12/19/18 20:59 11/20/18 21:28 Morphine Sulfate (Morphine Sulfate) 2 mg Q4H PRN IVP severe Pain (Pain Scale 7-10) 11/19/18 17:45 11/26/18 17:44 Nitroglycerin (Ntg) 0.4 mg Q5MIN X 3 DOSES PRN SL Prn Chest Pain 11/19/18 17:49 12/19/18 17:48 Ondansetron HCl (Zofran) 4 mg Q6H PRN IVP Nausea & Vomiting 11/19/18 17:50 12/19/18 17:49 Pantoprazole (Protonix) 40 mg EVERY 12 HOURS ORAL 11/20/18 21:00 12/20/18 20:59 11/21/18 09:33 Polyethylene Glycol (Miralax) 17 gm DAILYPRN PRN ORAL Constipation 11/19/18 17:49 12/19/18 17:48 Tamsulosin HCl (Flomax) 0.4 mg BID ORAL 11/21/18 13:15 12/21/18 13:14 UNV Temazepam (Restoril) 15 mg HSPRN PRN ORAL Insomnia 11/19/18 21:00 11/26/18 20:59 Laboratory Tests 11/21/18 05:40: White Blood Count 4.9, Red Blood Count 3.13L, Hemoglobin 10.2L, Hematocrit 29.5L , Mean Corpuscular Volume 94, Mean Corpuscular Hemoglobin 32.5H, Mean Corpuscular Hemoglobin Concent 34.5, Red Cell Distribution Width 11.8, Platelet Count 157, Mean Platelet Volume 6.2L, Neutrophils (%) (Auto) 62.4, Lymphocytes ( %) (Auto) 24.6, Monocytes (%) (Auto) 9.7, Eosinophils (%) (Auto) 2.4, Basophils (%) (Auto) 0.9, Reticulocyte Count 1.4, Prothrombin Time 10.0, Prothromb Time International Ratio 0.9, Activated Partial Thromboplast Time 31, Sodium Level 141, Potassium Level 4.4, Chloride Level 107, Carbon Dioxide Level 26, Anion Gap 8, Blood Urea Nitrogen 33H, Creatinine 2.0H, Estimat Glomerular Filtration Rate , Glucose Level 90, Calcium Level 8.8, Iron Level 98, Total Iron Binding Capacity 232L, Percent Iron Saturation 42, Unsaturated Iron Binding 134, Ferritin 177, Troponin I 0.009, Carcinoembryonic Antigen [Pending], Vitamin B12 Level 735, Folate 58.5, Thyroid Stimulating Hormone (TSH) 1.606, Free Thyroxine 1.06 Height (Feet): 5 Height (Inches): 4.00 Weight (Pounds): 115 General Appearance: no apparent distress Cardiovascular: bradycardia Respiratory/Chest: decreased breath sounds Abdomen: soft Objective no change Sam Robles MD Nov 21, 2018 13:05
[2018-11-21] MEDS: Tamsulosin 0.4mg cap ORAL SCH ×2 (14:07→17:55)
[2018-11-21 16:00] VITALS: BP 145/65
--- NOTE | 2018-11-21 17:45 | NUR ---
CASE MANAGEMENT:REVIEW 11/21/18 SI: ACUTE RENAL FAILURE. BRADYCARDIA INTRACTABLE NAUSEA AND VOMITING 98.5 67 64 18 145/65 98% ON RA BUN+33 CR+2.0 IS: FLOMAX PO BID ARICEPT PO QD ASA PO QD HEPARIN SQ Q12 : TELEMETRY STATUS DCP: FROM HOME
--- NOTE | 2018-11-21 19:31 | NUR ---
HAND-OFF: Report given to LASHANDA Daly. Patient in stable condition.
--- NOTE | 2018-11-21 19:38 | NUR ---
NURSE NOTES: Received report from LASHANDA Cuellar. Patient is awake lying semi-alfonso's; resting comfortably. No signs of acute distress noted; denies pain at this time. AOx4; able to make needs known with periods of forgetfulness. Primarily Sami speaking. Ambulates with some assistance. Checked IV site; patent and flushed. No erythema, bleeding, or infiltration noted. Urinal easily accessible at bedside. Bed at lowest position, brakes on, siderails up x3. Call light within reach. Will continue to monitor.
[2018-11-21 20:00] VITALS: BP 135/64
--- NOTE | 2018-11-21 20:22 | Cardiology Progress Note ---
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 to dc form cardaic view point Subjective ROS Limited/Unobtainable: Yes Cardiovascular: Denies: chest pain Objective Last 24 Hour Vital Signs Date Time Temp Pulse Resp B/P (MAP) Pulse Ox O2 Delivery O2 Flow Rate FiO2 11/21/18 16:00 64 11/21/18 16:00 98.5 67 18 145/65 (91) 98 11/21/18 12:00 65 11/21/18 12:00 97.3 80 18 122/65 (84) 99 11/21/18 09:00 Room Air 11/21/18 08:00 97.6 65 18 143/59 (87) 98 11/21/18 08:00 73 11/21/18 04:00 61 11/21/18 04:00 98.9 62 19 142/64 (90) 97 11/21/18 00:00 98.2 60 19 140/64 (89) 96 11/21/18 00:00 68 11/20/18 21:00 Room Air General Appearance: alert Neck: supple Cardiovascular: normal rate Respiratory/Chest: lungs clear Abdomen: normal bowel sounds, non tender, soft Extremities: no swelling Intake and Output 11/20/18 11/21/18 18:59 06:59 Intake Total 660 ml Output Total 400 ml 750 ml Balance 260 ml -750 ml Intake Oral 660 ml Output Urine Total 400 ml 750 ml # Voids 2 Laboratory Tests Test 11/21/18 05:40 White Blood Count 4.9 K/UL (4.8-10.8) Red Blood Count 3.13 M/UL (4.70-6.10) L Hemoglobin 10.2 G/DL (14.2-18.0) L Hematocrit 29.5 % (42.0-52.0) L Mean Corpuscular Volume 94 FL (80-99) Mean Corpuscular Hemoglobin 32.5 PG (27.0-31.0) H Mean Corpuscular Hemoglobin Concent 34.5 G/DL (32.0-36.0) Red Cell Distribution Width 11.8 % (11.6-14.8) Platelet Count 157 K/UL (150-450) Mean Platelet Volume 6.2 FL (6.5-10.1) L Neutrophils (%) (Auto) 62.4 % (45.0-75.0) Lymphocytes (%) (Auto) 24.6 % (20.0-45.0) Monocytes (%) (Auto) 9.7 % (1.0-10.0) Eosinophils (%) (Auto) 2.4 % (0.0-3.0) Basophils (%) (Auto) 0.9 % (0.0-2.0) Reticulocyte Count 1.4 % (0.5-2.0) Prothrombin Time 10.0 SEC (9.30-11.50) Prothromb Time International Ratio 0.9 (0.9-1.1) Activated Partial Thromboplast Time 31 SEC (23-33) Sodium Level 141 MMOL/L (136-145) Potassium Level 4.4 MMOL/L (3.5-5.1) Chloride Level 107 MMOL/L (98-107) Carbon Dioxide Level 26 MMOL/L (21-32) Anion Gap 8 mmol/L (5-15) Blood Urea Nitrogen 33 mg/dL (7-18) H Creatinine 2.0 MG/DL (0.55-1.30) H Estimat Glomerular Filtration Rate mL/min (>60) Glucose Level 90 MG/DL (74-106) Calcium Level 8.8 MG/DL (8.5-10.1) Iron Level 98 ug/dL (50-175) Total Iron Binding Capacity 232 ug/dL (250-450) L Percent Iron Saturation 42 % (15-50) Unsaturated Iron Binding 134 ug/dL (112-346) Ferritin 177 NG/ML (8-388) Troponin I 0.009 ng/mL (0.000-0.056) Carcinoembryonic Antigen Pending Vitamin B12 Level 735 PG/ML (193-986) Folate 58.5 NG/ML (8.6-58.9) Thyroid Stimulating Hormone (TSH) 1.606 uiU/mL (0.358-3.740) Free Thyroxine 1.06 NG/DL (0.76-1.46) David Jain MD Nov 21, 2018 20:22
[2018-11-22] VITALS: BP 140/61
[2018-11-22 04:00] VITALS: BP 141/61
[2018-11-22] MEDS: NovoLOG Insulin Flexpen SUBQ SCH ×2 (06:19→12:20)
[2018-11-22 06:34] LABS: BASOPHILS % (AUTO) 1.1 % (0.0-2.0); EOSINOPHILS % (AUTO) 2.4 % (0.0-3.0); HEMATOCRIT 28.8 % (42.0-52.0); HEMOGLOBIN 9.8 G/DL (14.2-18.0); LYMPHOCYTES % (AUTO) 27.1 % (20.0-45.0); MEAN CORPUSCULAR VOLUME 95 FL (80-99); MONOCYTES % (AUTO) 12.2 % (1.0-10.0); NEUTROPHILS % (AUTO) 57.2 % (45.0-75.0); PLATELET COUNT 158 K/UL (150-450); RED BLOOD COUNT 3.03 M/UL (4.70-6.10); RED CELL DISTRIBUTION WIDTH 11.4 % (11.6-14.8); WHITE BLOOD COUNT 4.4 K/UL (4.8-10.8)
[2018-11-22 06:46] LABS: ANION GAP 8 mmol/L (5-15); BLOOD UREA NITROGEN 40 mg/dL (7-18); CALCIUM 8.4 MG/DL (8.5-10.1); CARBON DIOXIDE 25 MMOL/L (21-32); CHLORIDE 105 MMOL/L (98-107); CREATININE 2.1 MG/DL (0.55-1.30); POTASSIUM 4.3 MMOL/L (3.5-5.1); SODIUM 138 MMOL/L (136-145)
--- NOTE | 2018-11-22 07:09 | NUR ---
HAND-OFF: Report given to LASHANDA Cuellar. Patient is asleep lying semi-alfonso's; resting comfortably. In stable condition.
--- NOTE | 2018-11-22 07:10 | NUR ---
NURSE NOTES: Report received from LASHANDA Daly. Patient sleeping comfortably, no breathing distress noted. Bed on lowest position, side rails upx2, brakes engaged. Call light within easy reach. White board updated.
[2018-11-22 08:00] VITALS: BP 145/62
[2018-11-22] MEDS: Aspirin Baby 81mg ORAL SCH (08:50)
[2018-11-22] MEDS: Donepezil 5mg Tab ORAL SCH (08:51)
[2018-11-22] MEDS: Tamsulosin 0.4mg cap ORAL SCH (08:51)
[2018-11-22] MEDS: Pancrelipase Dr Cap ORAL SCH ×2 (08:51→12:23)
[2018-11-22] MEDS: Heparin 5000 units/ml inj SUBQ SCH (09:00)
--- NOTE | 2018-11-22 09:40 | GI Progress Note ---
Assessment/Plan Problems: (1) Bradycardia ICD Codes: R00.1 - Bradycardia, unspecified SNOMED: 04624266 (2) Anemia ICD Codes: D64.9 - Anemia, unspecified SNOMED: 014160452 (3) Intractable nausea and vomiting ICD Codes: R11.2 - Nausea with vomiting, unspecified SNOMED: 457389552 Status: stable Status Narrative Discussed with Dr. Carranza Assessment/Plan anemia work up reviewed, stable H&H No plans for GI procedures at this time, okay for DC per GI standpoint Patient on ADA diet, tolerating zofran prn OB stool r/o GI bleed monitor H&H, prn transfusions bowel regimen ppi fu labs fu cardiology recs The patient was seen and examined at bedside and all new and available data was reviewed in the patients chart. I agree with the above findings, impression and plan. (Patient seen earlier today. Signature stamp does not reflect patient encounter time.). - Harmeet Carranza MD Subjective Gastrointestinal/Abdominal: Reports: no symptoms Subjective Denies any abdominal pain Denies any nausea vomiting Objective Last 24 Hour Vital Signs Date Time Temp Pulse Resp B/P (MAP) Pulse Ox O2 Delivery O2 Flow Rate FiO2 11/22/18 04:00 71 11/22/18 04:00 98.2 66 16 141/61 (87) 98 11/22/18 00:00 97.6 63 13 140/61 (87) 97 11/22/18 00:00 62 11/21/18 21:00 Room Air 11/21/18 20:00 97.5 64 18 135/64 (87) 94 11/21/18 20:00 64 11/21/18 16:00 64 11/21/18 16:00 98.5 67 18 145/65 (91) 98 11/21/18 12:00 65 11/21/18 12:00 97.3 80 18 122/65 (84) 99 Intake and Output 11/21/18 11/22/18 19:00 07:00 Intake Total 720 ml 240 ml Output Total 300 ml 350 ml Balance 420 ml -110 ml Intake Oral 720 ml 240 ml Output Urine Total 300 ml 350 ml # Voids 2 # Bowel Movements 2 Laboratory Tests Test 11/21/18 19:50 11/22/18 05:10 Stool Occult Blood Pending White Blood Count 4.4 K/UL (4.8-10.8) L Red Blood Count 3.03 M/UL (4.70-6.10) L Hemoglobin 9.8 G/DL (14.2-18.0) L Hematocrit 28.8 % (42.0-52.0) L Mean Corpuscular Volume 95 FL (80-99) Mean Corpuscular Hemoglobin 32.4 PG (27.0-31.0) H Mean Corpuscular Hemoglobin Concent 34.2 G/DL (32.0-36.0) Red Cell Distribution Width 11.4 % (11.6-14.8) L Platelet Count 158 K/UL (150-450) Mean Platelet Volume 5.7 FL (6.5-10.1) L Neutrophils (%) (Auto) 57.2 % (45.0-75.0) Lymphocytes (%) (Auto) 27.1 % (20.0-45.0) Monocytes (%) (Auto) 12.2 % (1.0-10.0) H Eosinophils (%) (Auto) 2.4 % (0.0-3.0) Basophils (%) (Auto) 1.1 % (0.0-2.0) Sodium Level 138 MMOL/L (136-145) Potassium Level 4.3 MMOL/L (3.5-5.1) Chloride Level 105 MMOL/L (98-107) Carbon Dioxide Level 25 MMOL/L (21-32) Anion Gap 8 mmol/L (5-15) Blood Urea Nitrogen 40 mg/dL (7-18) H Creatinine 2.1 MG/DL (0.55-1.30) H Estimat Glomerular Filtration Rate mL/min (>60) Glucose Level 100 MG/DL (74-106) Calcium Level 8.4 MG/DL (8.5-10.1) L Height (Feet): 5 Height (Inches): 4.00 Weight (Pounds): 115 General Appearance: WD/WN, no apparent distress, alert Cardiovascular: normal rate Respiratory/Chest: normal breath sounds, no respiratory distress Abdominal Exam: normal bowel sounds, non tender, soft Extremities: normal range of motion, non-tender Jacinto Ortiz NP Nov 22, 2018 09:39
--- NOTE | 2018-11-22 10:06 | NUR ---
CASE MANAGEMENT:REVIEW 11/22/18 SI: ACUTE RENAL FAILURE. BRADYCARDIA INTRACTABLE NAUSEA AND VOMITING 98.2 66 16 141/61 98% ON RA H/H-9.8/28.8 BUN+40 CR+2.1 IS: FLOMAX PO BID ARICEPT PO QD ZENPEP PO TID ASA PO QD HEPARIN SQ Q12 : TELEMETRY STATUS DCP: FROM HOME
[2018-11-22 12:00] VITALS: BP 143/60
--- NOTE | 2018-11-22 12:03 | Pulmonology Progress Note ---
Assessment/Plan Problems: (1) Bradycardia (2) Intractable nausea and vomiting (3) ARF (acute renal failure) (4) Hypertension (5) Alzheimer's dementia Assessment/Plan heart rate has been between 55-70 no new complains first degree av block cardiology notes reviewed check electrolytes, creatinine slightly lower, f/u renal US. 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 Subjective ROS Limited/Unobtainable: No Constitutional: Reports: no symptoms HEENT: Repors: no symptoms Respiratory: Reports: no symptoms Allergies: Coded Allergies: No Known Allergies (Unverified , 11/19/18) Objective Last 24 Hour Vital Signs Date Time Temp Pulse Resp B/P (MAP) Pulse Ox O2 Delivery O2 Flow Rate FiO2 11/22/18 09:00 Room Air 11/22/18 08:00 70 11/22/18 08:00 97.6 65 18 145/62 (89) 97 11/22/18 04:00 71 11/22/18 04:00 98.2 66 16 141/61 (87) 98 11/22/18 00:00 97.6 63 13 140/61 (87) 97 11/22/18 00:00 62 11/21/18 21:00 Room Air 11/21/18 20:00 97.5 64 18 135/64 (87) 94 11/21/18 20:00 64 11/21/18 16:00 64 11/21/18 16:00 98.5 67 18 145/65 (91) 98 Intake and Output 11/21/18 11/22/18 19:00 07:00 Intake Total 720 ml 240 ml Output Total 300 ml 350 ml Balance 420 ml -110 ml Intake Oral 720 ml 240 ml Output Urine Total 300 ml 350 ml # Voids 2 # Bowel Movements 2 General Appearance: WD/WN HEENT: normocephalic, atraumatic, PERRL Respiratory/Chest: chest wall non-tender, lungs clear Cardiovascular: normal peripheral pulses, regular rhythm Abdomen: normal bowel sounds, soft, non tender Neurologic/Psychiatric: repairer and checker II-XII grossly normal, normal mood/affect Laboratory Tests 11/21/18 19:50: Stool Occult Blood [Pending] 11/22/18 05:10: White Blood Count 4.4L, Red Blood Count 3.03L, Hemoglobin 9.8L, Hematocrit 28.8L , Mean Corpuscular Volume 95, Mean Corpuscular Hemoglobin 32.4H, Mean Corpuscular Hemoglobin Concent 34.2, Red Cell Distribution Width 11.4L, Platelet Count 158, Mean Platelet Volume 5.7L, Neutrophils (%) (Auto) 57.2, Lymphocytes (%) (Auto) 27.1, Monocytes (%) (Auto) 12.2H, Eosinophils (%) (Auto) 2.4, Basophils (%) (Auto) 1.1, Sodium Level 138, Potassium Level 4.3, Chloride Level 105, Carbon Dioxide Level 25, Anion Gap 8, Blood Urea Nitrogen 40H, Creatinine 2.1H, Estimat Glomerular Filtration Rate , Glucose Level 100, Calcium Level 8.4L Current Medications Medications (Trade) Dose Ordered Sig/Joelle Route PRN Reason Start Time Stop Time Status Last Admin Dose Admin Acetaminophen (Tylenol) 650 mg Q4H PRN ORAL FEVER 11/19/18 17:49 12/19/18 17:48 Albuterol/ Ipratropium (Albuterol/ Ipratropium) 3 ml Q4H PRN HHN Shortness of Breath 11/19/18 17:50 11/24/18 17:49 Amylase/Lipase/ Protease (Zenpep) 4 ea TID ORAL 11/21/18 09:00 12/21/18 08:59 11/22/18 08:51 Aspirin (ASA) 162 mg DAILY ORAL 11/20/18 09:00 12/20/18 08:59 11/22/18 08:50 Dextrose (Dextrose 50%) 25 ml Q30M PRN IV Hypoglycemia 11/19/18 18:56 12/19/18 18:55 Dextrose (Dextrose 50%) 50 ml Q30M PRN IV Hypoglycemia 11/19/18 19:00 12/19/18 18:59 Donepezil HCl (Aricept) 5 mg DAILY ORAL 11/21/18 09:00 12/21/18 08:59 11/22/18 08:51 Heparin Sodium (Porcine) (Heparin 5000 units/ml) 5,000 units EVERY 12 HOURS SUBQ 11/19/18 21:00 12/19/18 20:59 11/21/18 21:51 Hydralazine HCl (Apresoline) 25 mg Q4H PRN ORAL bp over 160 syst 11/20/18 14:30 12/20/18 14:29 Insulin Aspart (NovoLOG) BEFORE MEALS AND HS SUBQ 11/19/18 21:00 12/19/18 20:59 11/21/18 21:52 Morphine Sulfate (Morphine Sulfate) 2 mg Q4H PRN IVP severe Pain (Pain Scale 7-10) 11/19/18 17:45 11/26/18 17:44 Nitroglycerin (Ntg) 0.4 mg Q5MIN X 3 DOSES PRN SL Prn Chest Pain 11/19/18 17:49 12/19/18 17:48 Ondansetron HCl (Zofran) 4 mg Q6H PRN IVP Nausea & Vomiting 11/19/18 17:50 12/19/18 17:49 Pantoprazole (Protonix) 40 mg EVERY 12 HOURS ORAL 11/20/18 21:00 12/20/18 20:59 11/22/18 08:51 Polyethylene Glycol (Miralax) 17 gm DAILYPRN PRN ORAL Constipation 11/19/18 17:49 12/19/18 17:48 11/21/18 18:46 Tamsulosin HCl (Flomax) 0.4 mg BID ORAL 11/21/18 13:15 12/21/18 13:14 11/22/18 08:51 Temazepam (Restoril) 15 mg HSPRN PRN ORAL Insomnia 11/19/18 21:00 11/26/18 20:59 Kevin Nazario MD Nov 22, 2018 12:02
--- NOTE | 2018-11-22 14:25 | Nephrology Progress Note ---
Assessment/Plan Problem List: (1) Renal failure (ARF), acute on chronic (2) Bradycardia (3) Hypertension (4) Anemia Assessment ARF (acute renal failure) ? Underlying CKD : Per FADIA Bradycardia Intractable nausea and vomiting Hypertension Alzheimer's dementia Anemia Plan Slow Hydrate monitor renal parameters Urine studies keep BP and BS Anemia shah Per orders FADIA Impression: Somewhat atrophic right kidney Increased renal echogenicity bilaterally, consistent with medical renal disease Mild fullness of the left renal collecting system, of uncertain significance incidental finding bilateral renal cysts. Subjective ROS Limited/Unobtainable: No Constitutional: Reports: malaise Objective Objective Last 24 Hour Vital Signs Date Time Temp Pulse Resp B/P (MAP) Pulse Ox O2 Delivery O2 Flow Rate FiO2 11/22/18 12:00 97.8 66 18 143/60 (87) 97 11/22/18 12:00 64 11/22/18 09:00 Room Air 11/22/18 08:00 70 11/22/18 08:00 97.6 65 18 145/62 (89) 97 11/22/18 04:00 71 11/22/18 04:00 98.2 66 16 141/61 (87) 98 11/22/18 00:00 97.6 63 13 140/61 (87) 97 11/22/18 00:00 62 11/21/18 21:00 Room Air 11/21/18 20:00 97.5 64 18 135/64 (87) 94 11/21/18 20:00 64 11/21/18 16:00 64 11/21/18 16:00 98.5 67 18 145/65 (91) 98 Intake and Output 11/21/18 11/22/18 19:00 07:00 Intake Total 720 ml 240 ml Output Total 300 ml 350 ml Balance 420 ml -110 ml Intake Oral 720 ml 240 ml Output Urine Total 300 ml 350 ml # Voids 2 # Bowel Movements 2 Laboratory Tests 11/21/18 19:50: Stool Occult Blood Negative 11/22/18 05:10: White Blood Count 4.4L, Red Blood Count 3.03L, Hemoglobin 9.8L, Hematocrit 28.8L , Mean Corpuscular Volume 95, Mean Corpuscular Hemoglobin 32.4H, Mean Corpuscular Hemoglobin Concent 34.2, Red Cell Distribution Width 11.4L, Platelet Count 158, Mean Platelet Volume 5.7L, Neutrophils (%) (Auto) 57.2, Lymphocytes (%) (Auto) 27.1, Monocytes (%) (Auto) 12.2H, Eosinophils (%) (Auto) 2.4, Basophils (%) (Auto) 1.1, Sodium Level 138, Potassium Level 4.3, Chloride Level 105, Carbon Dioxide Level 25, Anion Gap 8, Blood Urea Nitrogen 40H, Creatinine 2.1H, Estimat Glomerular Filtration Rate , Glucose Level 100, Calcium Level 8.4L Height (Feet): 5 Height (Inches): 4.00 Weight (Pounds): 115 General Appearance: no apparent distress Objective no change Sam Robles MD Nov 22, 2018 14:25
--- NOTE | 2018-11-22 15:20 | NUR ---
D/C NOTE: Patient VSS. Teaching done using Persian contract negotiation manager ([id number]) and RN. Patient to continue home medications and to f/u with PMD within 3 days. Verbalized understanding. Belongings checked and signed. Discharge package provided. IV removed, intact. Name band removed. gun synchronizer removed and stored. Patient's preferred Persian speaking taxi provided. Pt left floor safe, via wheelchair, accompanied by LINK TRAINER OPERATOR.
--- NOTE | 2018-11-23 08:15 | Discharge Summary ---
Discharge Summary Discharge Summary _ DATE OF ADMISSION: 11/19/2018 DATE OF DISCHARGE: 11/22/2018 ATTENDING MD: Dr. Biju May DISCHARGED BY: Dr. Kevin Nazario CONSULTANTS: Dr. Kevin Jain [facility] COURSE: Patient is an 83-year-old male, who presented with chief complaint of generalized weakness. Patient apparently called 911 due to generalized weakness. Patient denied chest pain or shortness of breath. He was found to have bradycardia with heart rate in the 50s. He was then transported to [facility] for further evaluation. He has medical history significant for hypertension, type 2 diabetes and Alzheimer's dementia. On evaluation at the ED, blood pressure 140/55, heart rate 50. He was given IV hydration. Blood work did not show any leukocytosis, hemoglobin 10, hematocrit 29. UN was elevated to 34, creatinine 2.5. Troponin negative. BNP 164. Urinalysis showed plus for protein negative nitrite, negative leukocyte esterase , 0-2 RBC, 0-2 WBC. EKG showed sinus bradycardia with first-degree AV block. Chest x-ray did not show any acute findings. He was then admitted for evaluation of generalized weakness, bradycardia and acute renal failure. Patient apparently had recurrent problems with bouts of nausea and vomiting on several occasions. He was seen by his primary doctor and junior database administrator. He denied any cardiac problems, although he had an angiogram before. The angiogram did not resulted in intervention. Main issue was the nausea and vomiting. He also had pain at the back of the neck. On the day of admission, he had nausea and vomiting, then felt very weak and dizzy that he was not able to walk. There was no spinning sensation or dizziness. He did not pass out. He was initially placed on n.p.o. He was given symptomatic treatment for nausea and vomiting. Diet was advanced. He was given slow IV hydration. Renal parameters were monitored. Ultrasound the kidneys showed a somewhat kidney. Increased renal echogenicity bilaterally consistent with medical renal disease. There was mild fullness of the left renal collecting system and incidental finding bilateral renal cysts. Blood glucose was monitored. He was placed on insulin sliding scale. Hemoglobin A1c 6.1. Cardiac work-up was done. List of medications were reviewed. Patient was not on any beta-blockers. TSH was normal. Echocardiogram done showed ejection fraction 65%. Telemetry strips showed sinus rhythm with no bradycardia. Initial episodes of bradycardia was probably vagal induced. There was no indication for pacer this time. Cardiac enzymes were negative. Anemia work-up showed stable H&H. No GI procedures were required. Stool OB was negative x 1. FINAL DIAGNOSES: Acute bradycardia, possibly vagally mediated Acute on chronic renal failure Possible CKD per ultrasound Anemia Hypertension Intractable nausea and vomiting Alzheimer's dementia Hyperlipidemia Type 2 diabetes DISPOSITION: Patient was discharged home. DISCHARGE MEDICATIONS: Refer to Discharge Medication List. DISCHARGE INSTRUCTIONS: Follow-up in a week. I have been assigned to complete a discharge summary on this account, I was not involved with the patient's management. Annia Steele NP Nov 23, 2018 08:15
--- NOTE | 2018-11-23 13:18 | NUR ---
*-* INSURANCE *-* DISCHARGE SUMMARY HAVE BEEN FAXED TO: [facility] [phone] [phone] (FAX CLINICALS)
== END 2018-11-22 15:20 | disposition home or self-care (01) | DRG 309 ==
LOC: EDBD 14:53 → EMR 16:23 → 2E 16:38 → EDBEDREQ 17:18
DX: R00.1 Bradycardia, unspecified (principal); N17.9 Acute kidney failure, unspecified; R11.2 Nausea with vomiting, unspecified; G30.9 Alzheimer's disease, unspecified; F02.80 Dementia in other diseases classified elsewhere, unspecified severity, without behavioral disturbance, psychotic disturbance, mood disturbance, and anxiety; I11.0 Hypertensive heart disease with heart failure; I12.9 Hypertensive chronic kidney disease with stage 1 through stage 4 chronic kidney disease, or unspecified chronic kidney disease; E11.22 Type 2 diabetes mellitus with diabetic chronic kidney disease; N18.9 Chronic kidney disease, unspecified; D64.9 Anemia, unspecified; E78.5 Hyperlipidemia, unspecified
CPT/HCPCS: 36415; 71045; 76770; 80048; 80053; 80061; 81003; 82043; 82270; 82378; 82550; 82607; 82728; 82746; 82962; 82977; 83036; 83540; 83550; 83690; 83735; 83880; 83935; 84100; 84300; 84439; 84443; 84484; 84550; 85025; 85044; 85610; 85730; 86140; 89050; 93005; 93306; 96360; 96361; 99285; J1815